=== PATIENT | male | born 1960 | race Caucasian/White ===

== ENCOUNTER 2020-08-10 20:32 | Emergency (ER) | payer OTHER, SELFPAY ==
[2020-08-10 21:15] VITALS: BP 184/92; PULSE 69; RESP 18; TEMP 36.7; O2SAT 96
--- NOTE | 2020-08-10 21:50 | ED.WOUNDLAC ---
HPI - Wound/Laceration General Chief Complaint: Wound/Laceration Stated Complaint: cut finger Source: patient Mode of arrival: ambulatory Limitations: no limitations History of Present Illness HPI narrative: this is a 60-year-old gentleman that presents with a laceration to the left 4rd finger finger pad after he reached under [employer] generator and could on a moses of glass causing a flap-type omer laceration well approximated that was bleeding initially, patient did hold pressure irrigated and 3 of re-evaluation there was no bleeding. There is no numbness or tingling. Onset (ago): hour(s) Extremity Location: Left: hand ( ring finger on the finger pad laceration) Place: home Context: accidental Associated symptoms: none Treatments prior to arrival: other ( held pressure) Related Data Home Medications Medication Instructions Recorded Confirmed albuterol sulfate 2 puff INHALATION Q6H PRN 08/10/20 08/10/20 aspirin [Adult Aspirin] 81 mg PO DAILY 08/10/20 08/10/20 fluticasone propion-salmeterol 1 inh INHALATION BID 08/10/20 08/10/20 [Advair Diskus] telmisartan-hydrochlorothiazid 1 tablet PO DAILY 08/10/20 08/10/20 Allergies Allergy/AdvReac Type Severity Reaction Status Date / Time No Known Allergies Allergy Unknown Verified 10/08/15 16:10 Review of Systems Review of Systems: All systems reviewed & are unremarkable except as noted in HPI and below PMFSH Past Medical History Medical History Asthma HTN (hypertension) Exam Const: General: cooperative and healthy appearing HENMT: Head: normal to inspection Ears: hearing grossly normal bilaterally Face and sinus: normal facial exam Mouth: Yes Normal oral and palatal mucosa present Throat: posterior oropharynx normal Eyes: General: appearance normal, both eyes and all related structures Neck: Neck: normal visual inspection Chest: Chest palpation & inspection: normal inspection of the chest and normal palpation of entire chest wall Resp: Effort & Inspection: normal respiratory effort and able to speak in complete sentences Cardio: Jugular venous distension: no JVD Palpation: normal PMI Rate: regular rate Rhythm: regular rhythm GI: Inspection: normal to inspection Skin: Other: laceration 4th left finger pad well-approximated approximately 2cm in length Course Course Emergency Course: re-evaluation of patient's finger currently no bleeding and Dermabond was placed patient was up-to-date with his tetanus vaccine Procedures Laceration Laceration 1: Date: 08/10/20 Time: 21:55 Site: upper extremity Side (If applicable): left Size (cm): 2 Description: linear and flap Pre-repair: wound explored and irrigated extensively ====== Skin Level ====== Skin layer closed with: dermabond ====== Subcutaneous Layer ====== ====== Muscle Layer ====== ====== Tendon Layer ====== Critical Care Time Critical Care Time Critical Care Time: No Discharge Plan Discharge Clinical Impression: Laceration Patient Disposition: Home, Self-Care Condition: Stable Instructions: Antibiotic Form, Laceration (ED), Skin Adhesive Care (ED) Additional Instructions: follow-up with primary care physician if symptoms persist or worsen. Prescriptions: No Action fluticasone propion-salmeterol [Advair Diskus] 250-50 mcg/dose blister with device 1 inh INHALATION BID RF: 0 telmisartan-hydrochlorothiazid 80-12.5 mg tablet 1 tablet PO DAILY RF: 0 Adult Aspirin 81 mg Tablet 81 mg PO DAILY RF: 0 albuterol sulfate 90 mcg/actuation HFA aerosol inhaler 2 puff INHALATION Q6H PRN (Reason: Shortness Of Breath Or Wheezing) RF: 0 Follow-up/Referrals: Abhishek Liu MD [Primary Care Provider] - Time of Disposition: 21:56
[2020-08-10 22:16] VITALS: BP 162/89; PULSE 72; RESP 16; O2SAT 96
== END 2020-08-10 22:16 | disposition home or self-care (01) ==
PROVIDERS: Emergency Provider Emergency Medicine; PCP Family Medicine
DX: S61.215A Laceration without foreign body of left ring finger without damage to nail, initial encounter (principal); W45.8XXA Other foreign body or object entering through skin, initial encounter
CPT/HCPCS: 12001; 99282

== ENCOUNTER 2021-08-20 07:47 | Outpatient (CLI) | payer OTHER, SELFPAY ==
--- NOTE | ~2021-08-20 | XR_ITS ---
EXAMINATION: XR toe 1st RT min 2V DATE: 08/20/2021 08:07 INDICATION: Right great toe pain and swelling. TECHNIQUE: 4 views of right great toe were obtained. COMPARISON: None. FINDINGS: There is moderate hallux valgus. No fracture. There is moderate osteoarthritis of first met atarsophalangeal joint. No bone erosions to suggest inflammatory arthropathy. IMPRESSION: 1. Moderate ascites. 2. Moderate osteoarthritis of first metatarsophalangeal joint. Reviewed, dictated and finalized at location A. STEWARD
== END 2021-08-20 07:48 | disposition home or self-care (01) ==
LOC: CHSIMG 07:49
PROVIDERS: PCP Family Medicine; Visit Provider Family Medicine
DX: M10.9 Gout, unspecified (principal)
CPT/HCPCS: 73660

== ENCOUNTER 2021-09-29 10:30 | Emergency (ER) | payer OTHER, SELFPAY ==
[2021-09-29] VITALS (7 sets, daily range): BP systolic 114–158; BP diastolic 66–92; PULSE 61–94; RESP 16–22; TEMP 39.1; O2SAT 93–95
--- NOTE | ~2021-09-29 | CT_ITS ---
EXAMINATION: CTA chest PE protocol DATE: 09/29/2021 15:18 INDICATION: Shortness of breath. Elevated d-dimer. Covid-positive patient. TECHNIQUE: Computed tomography angiography (CTA) of the chest was performed with 100 mL Omnipaque-350 intravenous contrast timed to evaluate the pulmonary arteries. Coronal maximum intensity projection 3D-reconstructions were created by the technologist. Automated exposure control and iterative reconst ruction technique were employed. Exam dose: 755.65 mGy-cm total exam DLP. COMPARISON: 09/29/2021 portable AP chest 11/07/2018 CT chest abdomen pelvis FINDINGS: There is diagnostic contrast enhancement of the pulmonary arteries and no evidence of pulmo nary embolism. Normal size and homogeneous density of the thyroid gland. No thoracic aortic aneurysm or dissection. Normal heart size. No pericardial or pleural effusion. No hilar or mediastinal mass lesion or lymphadenopathy. There are scattered bilateral patchy groundglass infiltrates involving all lobes, with peripheral pre dilection. The findings are likely due to Covid pneumonia. There is rather extensive serpiginous calcification surrounding the posterior and posterolateral aspe ct of the hepatic dome and upper posterolateral right hepatic lobe. These were not present on the pre vious examination in 2013. These may be areas of calcified perihepatic fat necrosis, postoperative or posttraumatic change and/or pleural calcifications. There are dependent gallstones. No gallbladder wall thickening or pericholecystic fluid or fat strand ing is noted. Bilateral parapelvic renal cysts are again noted, present on 11/07/2018. No suspicious osteolytic or osteoblastic lesions are noted. IMPRESSION: No evidence of pulmonary embolism Scattered bilateral predominantly peripheral groundglass infiltrates involving all lung lobes, likely due to Covid pneumonia Serpiginous extensive calcification along the posterior lateral and posterior aspect of the liver; di fferential diagnosis given above Cholelithiasis Bilateral parapelvic renal cysts Reviewed, dictated and finalized at [facility]. Reviewed, dictated and finalized at location A. OGRAPHIC PLATEMAKER IMPRESSION: No evidence of pulmonary embolism Scattered bilateral predominantly peripheral groundglass infiltrates involving all lung lobes, likely due to Covid pneumonia Serpiginous extensive calcification along the posterior lateral and posterior a spect of the liver; differential diagnosis given above Cholelithiasis Bilateral parapelvic renal cysts
--- NOTE | ~2021-09-29 | XR_ITS ---
EXAMINATION: XR chest 1V portable DATE: 09/29/2021 11:44 INDICATION: COVID positive. Cough. TECHNIQUE: frontal view of the chest was obtained. COMPARISON: Chest radiograph dated 08/22/1990 FINDINGS: Opacities at the right lung base and more subtly in the right midlung zone and near the left costophr enic angle which could represent atelectasis and/or pneumonia. No pleural effusion or pneumothorax. T he cardiomediastinal silhouette is normal. IMPRESSION: 1. Mild opacities in the right mid and lower and left lower lung zones which could represent atelecta sis and/or pneumonia. Reviewed, dictated and finalized at location H. ATION ONCOLOGY MANAGER IMPRESSION: 1. Mild opacities in the right mid and lower and left lower lung zones which co uld represent atelectasis and/or pneumonia.
--- NOTE | 2021-09-29 11:44 | ECG_ITS ---
Measurements Intervals [place] Rate: 105 P: SC: 0 QRS: -13 QRSD: 85 T: 95 QT: 277 QTc: 366 Interpretive Statements ACCELERATED JUNCTIONAL RHYTHM VENTRICULAR BIGEMINY INCOMPLETE RIGHT BUNDLE BRANCH BLOCK VOLTAGE CRITERIA FOR LVH MINIMAL Q WAVES- HIGH LATERAL LEADS ABNORMAL ECG Electronically Signed On 09-29-2021 16:54:44 LOGISTICS SERVICE REPRESENTATIVE by Richard Harrison D.O.
--- NOTE | 2021-09-29 11:53 | ED.SOB ---
HPI - SOB/Dyspnea General Chief Complaint: Shortness of Breath/Dyspnea Stated Complaint: covid eval Time Seen by Provider: 09/29/21 11:42 Source: patient Mode of arrival: ambulatory Limitations: no limitations History of Present Illness HPI Narrative: Patient is a 61-year-old male complaining of shortness of breath, cough, body aches, fatigue, nausea, fever and chills started 5 days ago, was diagnosed with Covid on 09/25, states that his shortness of breath is worse today. Patient denies any chest pain, abdominal pain, vomiting, diarrhea or rash. Related Data Home Medications Medication Instructions Recorded Confirmed albuterol sulfate 2 puff INHALATION Q6H PRN 08/10/20 12/03/20 aspirin [Adult Aspirin] 81 mg PO DAILY 08/10/20 12/03/20 fluticasone propion-salmeterol 1 inh INHALATION BID 08/10/20 12/03/20 [Advair Diskus] telmisartan-hydrochlorothiazid 1 tablet PO DAILY 08/10/20 12/03/20 fluticasone 250 mcg-salmeterol 50 1 inh INHALATION BID 12/03/20 12/03/20 mcg/dose blistr powdr for inhalation montelukast 10 mg tablet 10 mg PO DAILY 12/03/20 12/03/20 Allergies Allergy/AdvReac Type Severity Reaction Status Date / Time No Known Allergies Allergy Unknown Verified 09/29/21 11:17 Review of Systems Review of Systems: All systems reviewed & are unremarkable except as noted in HPI and below Constitutional: Constitutional: Denies body ache(s), Denies excessive sweating, Denies headache(s), Denies lethargy, Denies weakness and Denies weight loss Eyes: Eyes: Denies blurry vision, Denies change in vision and Denies loss of vision ENT: Denies dizziness, Denies ear discharge, Denies headache(s), Denies lip swelling, Denies epistaxis, Denies neck pain, Denies throat swelling and Denies tongue swelling Cardiovascular: Cardiovascular: Denies chest pain, Denies chest pain at rest, Denies chest pain with activity, Denies diaphoresis, Denies rapid heart rate, Denies edema, Denies irregular heart rhythm, Denies lightheadedness and Denies palpitations Respiratory: Respiratory: Denies chest congestion, Denies cough and Denies hemoptysis Gastrointestinal: Gastrointestinal: Denies abdominal pain, Denies melena, Denies hematochezia, Denies diarrhea, Denies vomiting and Denies hematemesis Musculoskeletal: Musculoskeletal: Denies abnormal gait, Denies deformity, Denies joint swelling, Denies limited range of motion, Denies neck pain and Denies numbness Neurologic: Denies Abnormal speech present, Denies abnormal gait, Denies confusion, Denies dizziness, Denies headache(s), Denies focal weakness, Denies loss of vision, Denies numbness, Denies Other visual disturbances, Denies Sensory deficit (Neuro) and Denies weakness Psychiatric: Psychiatric: Denies confusion, Denies depression, Denies auditory hallucinations, Denies homicidal ideation and Denies suicidal ideation Endocrine: Endocrine: Denies cold intolerance, Denies excessive sweating, Denies fatigue, Denies heat intolerance and Denies palpitations Hematologic/Lymphatic: Hematologic/Lymphatic: Denies easy bleeding and Denies easy bruising Allergic/Immunologic: Allergic/Immunologic: Denies lip swelling, Denies throat swelling and Denies tongue swelling PMFSH Past Medical History Medical History Asthma HTN (hypertension) Surgical History Surgical History Status post bilateral total hip replacement Comments Social history: Non-smoker no EtOH or drug use Exam Const: General: cooperative, healthy appearing, comfortable, no acute distress, well developed, alert and awake; No confusion Orientation/consciousness: oriented to person, oriented to place, oriented to time, patient oriented x3 and No confusion Limitations: no limitations HENMT: Head: normal to inspection, normocephalic and atraumatic Ears: hearing grossly normal bilaterally, TM normal on the right and TM normal
[2021-09-29] MEDS: ACETAMINOPHEN 325 MG TABLET 650 MG PO (12:23)
[2021-09-29 12:24] LABS: Basophils Percent Auto 0.2 % (0.2-1.2); Eosinophils Percent Auto 0.1 % (0-4.4); Hematocrit 48.7 % (42.0-52.0); Hemoglobin 16.5 g/dL (14.0-18.0); Immature Granulocyte Absolute 0.03 K/mm3 (0.00-0.031); Immature Granulocyte Percent A 0.4 % (0-0.5); Lymphocytes Absolute Auto 1.17 K/mm3 (0.9-3.2); Mean Corpuscular HGB Conc 33.9 g/dl (32-36); Mean Corpuscular Hemoglobin 27.9 pg (26-34); Mean Corpuscular Volume 82.4 fl (80-100); Mean Platelet Volume 10.9 fl (7.4-10.4); Monocytes Absolute Auto 0.6 K/mm3 (0.1-0.6); Monocytes Percent Auto 6.8 % (2.6-8.5); Neutrophils Absolute Auto 6.5 K/mm3 (1.3-6.7); Neutrophils Percent Auto 78.5 % (45.5-73.1); Platelet Count Result 167 k/mm3 (150-375); Red Blood Count 5.91 M/mm3 (4.6-6.20); Red Cell Distribution Width 13.4 % (11.5-14.5); White Blood Count 8.3 K/mm3 (4.5-10.0)
[2021-09-29] MEDS: SODIUM CHLORIDE 0.9% IV 1,000 ML 999 ML (12:24)
[2021-09-29 12:36] LABS: Alanine Aminotransferase 44 U/L (4-50); Albumin Level 4.2 g/dL (3.5-5.1); Alkaline Phosphatase 95 U/L (38-126); Anion Gap 8 mmol/L (8-16); Aspartate Amino Transferase 47 U/L (17-59); Bilirubin,Total 0.4 mg/dL (0.2-1.3); Blood Urea Nitrogen 17 mg/dL (9-20); Calcium 8.8 mg/dL (8.4-10.2); Carbon Dioxide 22 mmol/L (22-30); Chloride 100 mmol/L (98-107); Estimated CRCL calculation 58 ml/min; Estimated Glomerular Filt Rate > 60; Glucose 121 mg/dL (65-110); INR 0.9; Partial Thromboplastin Time 27.7 SECONDS (22.3-36.8); Prothrombin Time 12.2 Seconds (11.1-14.7); Sodium 130 mmol/L (137-145)
[2021-09-29 12:37] LABS: Lactic Acid Reflex 1.5 mmol/L (0.7-2.1)
[2021-09-29 12:39] LABS: D Dimer 0.53 ug/mL (<0.48)
[2021-09-29] MEDS: ALBUTEROL SULFATE NEB 2.5 MG/0.5 ML INH 5 MG INHALATION (13:54)
[2021-09-29] MEDS: IPRATROPIUM BR 0.02% INH SOLN 0.5 MG/2.5 ML VIAL INHALATION (13:54)
[2021-09-29] MEDS: LACTATED RINGERS 1,000 ML 999 ML IV CONT (13:57)
[2021-09-29 14:14] LABS: Alveolar/Arterial O2 Gradient 39.9 mmHg; Base Excess ABG -4.1 mEq/l (+/-2.0); Carboxyhemoglobin 0.3 % THb (0-2.0); Fractional Inspired Oxygen 21 %; HCO3 ABG 18.6 mEq/l (22.0-26.0); Methemoglobin ABG 0.3 %THb (0-1.5); Oxygen Content ABG 21.5 %vol (16.0-22.0); Oxygen Saturation ABG 95.6 % (95.0-100.0); Oxyhemoglobin 94.5 % THb (90.0-100.0); PCO2 ABG 28.9 mmHg (35.0-45.0); PO2 ABG 75.2 mmHg (80.0-100.0); PO2 FiO2 Ratio Arterial Blood 3.58 %; Reduced Hemoglobin 4.9 %THb (0-5.0); Total Hemoglobin 16.2 g/dL (12.0-18.0); pH ABG 7.427 (7.350-7.450)
[2021-09-29 14:19] LABS: Device ROOM AIR; Modified Allen's Test Pass; Site Drawn RIGHT RADIAL
== END 2021-09-29 17:20 | disposition home or self-care (01) ==
PROVIDERS: Emergency Provider Emergency Medicine; PCP Family Medicine
DX: U07.1 COVID-19 (principal); J12.82 Pneumonia due to coronavirus disease 2019; J45.901 Unspecified asthma with (acute) exacerbation; I10 Essential (primary) hypertension; Z96.643 Presence of artificial hip joint, bilateral
CPT/HCPCS: 36415; 36600; 71045; 71275; 80053; 82375; 82805; 83050; 83605; 84484; 85025; 85380; 85610; 85730; 93005; 94640; 96361; 96374; 99284; A9270; J1100; J7030; J7120; Q9967

== ENCOUNTER 2021-09-30 12:47 | Outpatient (CLI) | payer OTHER, SELFPAY ==
--- NOTE | 2021-09-30 13:05 | PC.NURSE ---
Pt to room 202 amb. A&Ox3. Infusion plan of care explained. Consent signed. Pt has no questions or complaints. Oriented to room. Call montes in reach. Reminded to call with needs.
[2021-09-30 14:13] VITALS: BP 131/77; PULSE 63; RESP 20; TEMP 36.3; O2SAT 96
[2021-09-30] MEDS: diphenhydrAMINE HCl CAP 25 MG CAPSULE PO (14:13)
[2021-09-30] MEDS: FAMOTIDINE 20 MG TABLET PO (14:13)
[2021-09-30] MEDS: ACETAMINOPHEN 325 MG TABLET 650 MG PO (14:13)
--- NOTE | 2021-09-30 15:22 | PC.NURSE ---
Pt has no complaints. Discharged to home amb.
== END 2021-09-30 12:48 | disposition home or self-care (01) ==
PROVIDERS: PCP Family Medicine; Visit Provider Family Medicine
DX: U07.1 COVID-19 (principal); J44.9 Chronic obstructive pulmonary disease, unspecified
CPT/HCPCS: A9270; M0245; Q0245

== ENCOUNTER 2021-10-04 05:25 | Inpatient (IN) | payer OTHER, SELFPAY ==
[2021-10-04] VITALS (12 sets, daily range): BP systolic 130–149; BP diastolic 65–92; PULSE 56–90; RESP 18–25; TEMP 36.2–36.7; O2SAT 89–100; BMI 29.5
--- NOTE | ~2021-10-04 | XR_ITS ---
EXAMINATION: XR chest 1V portable DATE: 10/04/2021 07:38 INDICATION: Shortness of breath. COVID-19 pneumonia. TECHNIQUE: A single frontal view of the chest was obtained. COMPARISON: Chest single view 09/29/2021, chest CT 09/29/2021 FINDINGS: Again seen is mild elevation of right hemidiaphragm. There are patchy airspace opacities in all lung zones bilaterally, worst at right lung base. No pleural effusion or pneumothorax. The heart size is normal. IMPRESSION: 1. Diffuse lung disease with worsening from 09/29/2021, consistent with COVID-19 pneumonia. Reviewed, dictated and finalized at location A. ISH MAKER IMPRESSION: 1. Diffuse lung disease with worsening from 09/29/2021, consistent with COVID-1 9 pneumonia.
--- NOTE | 2021-10-04 05:47 | ECG_ITS ---
Measurements Intervals [place] Rate: 66 P: 37 PA: 154 QRS: -17 QRSD: 94 T: 14 QT: 386 QTc: 405 Interpretive Statements SINUS RHYTHM VOLTAGE CRITERIA FOR LVH BORDERLINE T WAVE ABNORMALITY- INFERIOR LEADS BASELINE ARTIFACT- I, III, AVR, AVL BORDERLINE ECG Electronically Signed On 10-04-2021 8:32:53 VETERINARY EPIDEMIOLOGIST by Richard Harrison D.O.
[2021-10-04 06:08] LABS: Basophils Percent Auto 0.2 % (0.2-1.2); Eosinophils Percent Auto 0.2 % (0-4.4); Hematocrit 45.1 % (42.0-52.0); Hemoglobin 15.1 g/dL (14.0-18.0); Immature Granulocyte Absolute 0.13 K/mm3 (0.00-0.031); Immature Granulocyte Percent A 1.1 % (0-0.5); Lymphocytes Absolute Auto 2.57 K/mm3 (0.9-3.2); Lymphocytes Percent Auto 21.2 % (18.3-44.2); Mean Corpuscular HGB Conc 33.5 g/dl (32-36); Mean Corpuscular Hemoglobin 27.8 pg (26-34); Mean Corpuscular Volume 82.9 fl (80-100); Mean Platelet Volume 10.9 fl (7.4-10.4); Monocytes Absolute Auto 0.9 K/mm3 (0.1-0.6); Monocytes Percent Auto 7.3 % (2.6-8.5); Neutrophils Absolute Auto 8.5 K/mm3 (1.3-6.7); Platelet Count Result 262 k/mm3 (150-375); Red Blood Count 5.44 M/mm3 (4.6-6.20); Red Cell Distribution Width 13.5 % (11.5-14.5); White Blood Count 12.2 K/mm3 (4.5-10.0)
[2021-10-04 06:22] LABS: Alanine Aminotransferase 76 U/L (4-50); Albumin Level 4.1 g/dL (3.5-5.1); Alkaline Phosphatase 107 U/L (38-126); Anion Gap 11 mmol/L (8-16); Aspartate Amino Transferase 35 U/L (17-59); Bilirubin,Total 0.6 mg/dL (0.2-1.3); Blood Urea Nitrogen 22 mg/dL (9-20); Calcium 9.1 mg/dL (8.4-10.2); Carbon Dioxide 23 mmol/L (22-30); Chloride 103 mmol/L (98-107); Estimated CRCL calculation 84 ml/min; Estimated Glomerular Filt Rate > 60; Glucose 100 mg/dL (65-110); Potassium 4.1 mmol/L (3.4-5.0); Sodium 137 mmol/L (137-145)
--- NOTE | 2021-10-04 07:47 | ED.GENADULT ---
HPI - General Adult General Chief complaint: Shortness of Breath/Dyspnea Stated complaint: hypoxia with COVID Time Seen by Provider: 10/04/21 07:09 Source: RN notes reviewed History of Present Illness HPI narrative: Patient presents emerge department from home for shortness of breath. Patient states he tested positive for COVID-19 on September 25. States that he been seen in the emergency department at that time and had work-up showing he had Covid pneumonia. He states that he became more short of breath last night and came in for further evaluation. Patient states that he has had intermittent subjective fevers he denies any chest pain abdominal pain nausea vomiting. States he did not receive the COVID-19 vaccination Related Data Home Medications Medication Instructions Recorded Confirmed albuterol sulfate 2 puff INHALATION Q6H PRN 08/10/20 12/03/20 aspirin [Adult Aspirin] 81 mg PO DAILY 08/10/20 12/03/20 fluticasone propion-salmeterol 1 inh INHALATION BID 08/10/20 12/03/20 [Advair Diskus] telmisartan-hydrochlorothiazid 1 tablet PO DAILY 08/10/20 12/03/20 fluticasone 250 mcg-salmeterol 50 1 inh INHALATION BID 12/03/20 12/03/20 mcg/dose blistr powdr for inhalation montelukast 10 mg tablet 10 mg PO DAILY 12/03/20 12/03/20 Allergies Allergy/AdvReac Type Severity Reaction Status Date / Time No Known Allergies Allergy Unknown Verified 10/04/21 05:46 Review of Systems Review of Systems: Gen.: Denies fevers or chills ENT: Denies congestion Respiratory: See HPI CV: Denies chest pain or palpitations GI: Denies abdominal pain nausea, emesis or diarrhea Musculoskeletal: Denies back pain or muscle pain Neuro: Denies numbness, tingling, weakness or focal weakness Skin: Denies rash Except as documented, all other systems reviewed and negative PMFSH Past Medical History Medical History Asthma HTN (hypertension) Surgical History Surgical History Status post bilateral total hip replacement Social History Social History (Updated 10/04/21 @ 07:48 by ANA Boss Smoking status: Never smoker Exam Narrative: APPEARANCE: No acute distress, nontoxic, resting in bed EYES: EOMI HEENT: Normocephalic, atraumatic, OMM RESPIRATORY: No respiratory distress coarse breath sounds at the bilateral lung lino CARDIOVASCULAR: Regular rate and rhythm without murmurs rubs or gallops. ABDOMINAL: Soft, nontender, nondistended, no rebound or guarding MUSCULOSKELETAl: Moves all extremities. No clubbing, cyanosis or edema. NEURO: Awake and alert. Following commands, speech normal, no focal deficits SKIN:: Warm, dry. No rashes lesions or abrasions PSYCHIATRIC: Normal affect/mood, Course Course Emergency Course: : Discussed with Dr. Umaña presentation work-up agrees with admission at this time request patient be on Decadron and remdesivir Discussed with patient and family results of workup and diagnosis. Discussed need for admission. Patient and family understand and agree to current treatment plan Vital Signs Vital signs: Vital Signs Pulse Rate 80 10/04/21 05:33 Respiratory Rate 24 H 10/04/21 05:33 Blood Pressure 130/80 10/04/21 05:33 Pulse Oximetry 90 10/04/21 05:33 Pulse Rate 56 L 10/04/21 10:23 Respiratory Rate 18 10/04/21 10:23 Blood Pressure 135/65 10/04/21 10:23 Pulse Oximetry 97 10/04/21 10:23 Medical Decision Making Vital Signs Vital Signs: Vital Signs Pulse Rate 80 10/04/21 05:33 Respiratory Rate 24 H 10/04/21 05:33 Blood Pressure 130/80 10/04/21 05:33 Pulse Oximetry 90 10/04/21 05:33 Pulse Rate 56 L 10/04/21 10:23 Respiratory Rate 18 10/04/21 10:23 Blood Pressure 135/65 10/04/21 10:23 Pulse Oximetry 97 10/04/21 10:23 Lab Data Result diagrams: 10/04/21 06:02 10/04/21 06:02 Labs: Lab Results
[2021-10-04 08:28] LABS: CRP 1.6 mg/dL (<1.0); Lactate Dehydrogenase 815 U/L (313-618)
[2021-10-04] MEDS: ALBUTEROL SULFATE (*SP) AEROSOL 1 PUFF 2 PUFF INHALATION ×2 (08:46→20:57)
[2021-10-04 09:21] LABS: Prothrombin Time 12.6 Seconds (11.1-14.7)
[2021-10-04 09:22] LABS: Partial Thromboplastin Time 21.3 SECONDS (22.3-36.8)
[2021-10-04] MEDS: REMDESIVIR 200 MG/NS 250 ML 200 MG/250 ML BAG 250 MG IVPB (10:23)
--- NOTE | 2021-10-04 12:03 | ADMGEN ---
This patient, Lee Lan, was admitted to [facility] Surg Room 315-01 at 1155. Patient/family oriented to hospital policies and general routines including ID bracelet, bed and alarms, visiting hours, pain management, procedures, bathroom and other care routines, personal items, smoking policy, room service/diet, and visiting hours. Information on how to activate the Rapid Response Team has been discussed. Patient/Family are encouraged to report perceived risks to care and to ask questions if they do not understand what they are told or what they should do.
--- NOTE | 2021-10-04 15:43 | PM.IMHP ---
H&P: HPI History of Present Illness Date/Time: 10/04/21 15:43 Patient is a 61-year-old male with past medical history of moderate persistent asthma, essential hypertension presents to ED with complaints of dyspnea and poor appetite. He is not vaccinated for COVID-19. He was diagnosed with COVID-19 on 09/25/2021 went to the ER on 09/29/2021 with no intervention and sent home. He with returns today stating he had 84% oxygen saturation at room air at home. In the ED he was found to have 89% oxygen saturation on room air, placed on 2 L with improvement of oxygenation to 100%. Patient to be admitted for acute hypoxic respiratory failure secondary to COVID-19. He has been started on remdesivir and Decadron in the ED. we discussed continue supportive care and weaning his oxygen as tolerated. Chief Complaint: Cough Review of Systems Review of Systems: Constitutional: No Fever, No Chills, No Night Sweats, endorses generalized weakness, body aches, fatigue ENT/Mouth: No Hearing Changes, No Ear Pain, No Nasal Congestion, No Sinus Pain, No Hoarseness, No sore throat, No Rhinorrhea, No Swallowing Difficulty Eyes: No Eye Pain, No Redness, No Vision Changes Cardiovascular: No Chest Pain, No Palpitations, No Dyspnea on Exertion, No Orthopnea, No Claudication, No Edema Respiratory: Endorses cough, shortness of breath Gastrointestinal: No Vomiting, No Diarrhea, No Constipation, No Abdominal Pain, No Heartburn, No Hematochezia, No Melena. Endorses nausea and poor appetite. Genitourinary: No Dysuria, No Urinary Frequency, No Hematuria, No Urinary Incontinence, No Urgency Musculoskeletal: No Arthralgias, No Myalgias, No Joint Swelling, No Joint Stiffness, No Back Pain Skin: No Skin Lesions, No Pruritis, No Hair Changes Neuro: No Weakness, No Numbness, No Paresthesias, No Loss of Consciousness, No Syncope, No Dizziness, No Headache Psych: No Anxiety/Panic, No Depression, No Insomnia Heme: No Bruising, No Bleeding Lymph: No Adenopathy Endocrine: No Polyuria, No Polydipsia, No Temperature Intolerance PMFSH Past Medical History Medical History Asthma HTN (hypertension) Surgical History Surgical History Status post bilateral total hip replacement Social History Social History Smoking status: Never smoker Second hand tobacco smoke exposure: No Alcohol intake: never Substance use: never Spiritual care concerns: No Meds Home Medications and Allergies Home Medications Medication Instructions Recorded Confirmed Type albuterol sulfate 2 puff INHALATION Q6H PRN 08/10/20 10/04/21 History aspirin [Adult Aspirin] 81 mg PO DAILY 08/10/20 10/04/21 History fluticasone propion-salmeterol 1 inh INHALATION BID 08/10/20 10/04/21 History [Advair Diskus] telmisartan-hydrochlorothiazid 1 tablet PO DAILY 08/10/20 10/04/21 History fluticasone 250 mcg-salmeterol 50 1 inh INHALATION BID 12/03/20 10/04/21 History mcg/dose blistr powdr for inhalation montelukast 10 mg tablet 10 mg PO DAILY 12/03/20 10/04/21 History methylprednisolone [Medrol (Yovanny)] See Rx Instructions .ROUTE 09/29/21 10/04/21 Rx .COMPLEX #21 each Allergies Allergy/AdvReac Type Severity Reaction Status Date / Time No Known Allergies Allergy Unknown Verified 10/04/21 05:46 Vital Signs Vital Signs - 24 hr 10/04/21 05:33 10/04/21 05:43 10/04/21 05:45 Temperature Pulse Rate 80 69 Respiratory Rate 24 H 24 H Blood Pressure 130/80 149/85 H Pulse Oximetry 90 89 L 93 10/04/21 06:33 10/04/21 08:26 10/04/21 10:23 Temperature Pulse Rate 68 72 56 L Respiratory Rate 19 25 H 18 Blood Pressure 130/70 133/70 135/65 Pulse Oximetry 95 96 97 10/04/21 12:00 10/04/21 12:16 Temperature 36.7 C Pulse Rate 57 L Respiratory Rate 18 Blood Pressure 141/66 H Pulse Oximetry 100 100
[2021-10-04] MEDS: FLUTICASONE/SALMETEROL 115-21 MCG INHALER 1 PUFF 2 PUFF INHALATION (20:57)
[2021-10-05] VITALS (7 sets, daily range): BP systolic 114–145; BP diastolic 66–80; PULSE 56–90; RESP 16–20; TEMP 36.2–36.4; O2SAT 95–99
[2021-10-05] MEDS: ALBUTEROL SULFATE (*SP) AEROSOL 1 PUFF 2 PUFF INHALATION ×2 (02:23→20:56)
[2021-10-05 08:00] LABS: Alanine Aminotransferase 64 U/L (4-50); Albumin Level 3.9 g/dL (3.5-5.1); Alkaline Phosphatase 99 U/L (38-126); Anion Gap 10 mmol/L (8-16); Aspartate Amino Transferase 26 U/L (17-59); Bilirubin,Total 0.5 mg/dL (0.2-1.3); Blood Urea Nitrogen 22 mg/dL (9-20); Calcium 9.1 mg/dL (8.4-10.2); Carbon Dioxide 25 mmol/L (22-30); Chloride 101 mmol/L (98-107); Estimated CRCL calculation 95 ml/min; Estimated Glomerular Filt Rate > 60; Glucose 119 mg/dL (65-110); Potassium 4.7 mmol/L (3.4-5.0); Sodium 136 mmol/L (137-145)
[2021-10-05 08:01] LABS: Basophils Percent Auto 0.3 % (0.2-1.2); Eosinophils Percent Auto 0.1 % (0-4.4); Hematocrit 43.6 % (42.0-52.0); Hemoglobin 14.5 g/dL (14.0-18.0); Immature Granulocyte Absolute 0.16 K/mm3 (0.00-0.031); Immature Granulocyte Percent A 1.1 % (0-0.5); Lymphocytes Absolute Auto 1.94 K/mm3 (0.9-3.2); Lymphocytes Percent Auto 13.7 % (18.3-44.2); Mean Corpuscular HGB Conc 33.3 g/dl (32-36); Mean Corpuscular Volume 84.2 fl (80-100); Mean Platelet Volume 10.8 fl (7.4-10.4); Monocytes Absolute Auto 1.3 K/mm3 (0.1-0.6); Monocytes Percent Auto 9.2 % (2.6-8.5); Neutrophils Absolute Auto 10.7 K/mm3 (1.3-6.7); Neutrophils Percent Auto 75.6 % (45.5-73.1); Platelet Count Result 305 k/mm3 (150-375); Red Blood Count 5.18 M/mm3 (4.6-6.20); Red Cell Distribution Width 13.3 % (11.5-14.5); White Blood Count 14.2 K/mm3 (4.5-10.0)
[2021-10-05 08:50] LABS: Prothrombin Time 12.9 Seconds (11.1-14.7)
[2021-10-05] MEDS: ENOXAPARIN 40 MG/0.4 ML SYRINGE SUB-Q (08:51)
[2021-10-05] MEDS: ASPIRIN 81 MG CHEWABLE TABLET PO (08:51)
[2021-10-05] MEDS: MONTELUKAST SODIUM 10 MG TABLET PO (08:52)
[2021-10-05] MEDS: TELMISARTAN 40 MG TABLET 80 MG PO (08:52)
[2021-10-05] MEDS: methylPREDNISolone SOD SUCC 40 MG VIAL IV PUSH (09:35)
[2021-10-05] MEDS: REMDESIVIR 100 MG/NS 250 ML 100 MG/250 ML BAG 250 MG IVPB (10:45)
[2021-10-05] MEDS: hydroCHLOROthiazide 12.5 MG CAPSULE PO (10:46)
[2021-10-05 11:19] LABS: Atypical Lymphocytes Present; Platelet Estimate Adequate (Adequate)
--- NOTE | 2021-10-05 14:53 | PM.IMPN ---
Progress Note: A&P Assessment and Plan (1) Pneumonia due to COVID-19 virus: Code(s): U07.1 - COVID-19; J12.82 - Pneumonia due to coronavirus disease 2019 Status: Acute (2) Acute respiratory failure with hypoxia: Code(s): J96.01 - Acute respiratory failure with hypoxia Status: Acute Additional Plan # COVID-19 pneumonia # acute hypoxic respiratory failure -unvaccinated, diagnosed 09/25/2021, seen in the ER 09/29/2021, now returns to hospital -patient states he was 84% home pulse oximeter, in the ER 89% on room air, placed on 2 L now satting 99% -will keep oxygen saturation greater than 90%, currently on 2 L oxygen nasal cannula -treatment plan: Remdesivir day 2, switching Decadron to Solu-Medrol IV 40 mg daily -p.r.n. Tylenol for fever and pain -discussed with RN to continue weaning oxygen # chronic conditions -essential hypertension: Continue hydrochlorothiazide and telmisartan, aspirin -asthma: Continue home Advair, p.r.n. albuterol, singular. Diet: Regular DVT prophylaxis: Lovenox Code status: Full code like Disposition: Pending clinical course, weaning oxygen, likely home in 2-3 days Subjective Date/time seen: 10/05/21 14:53 Patient seen examined. Doing well today no new complaints. On 2 L oxygen by nasal cannula. Discussed with RN to continue weaning. He is tolerating remdesivir without problem, switching Decadron to Solu-Medrol for bradycardia. Patient denies fever, chills, nausea, vomiting, diarrhea. He endorses cough and dyspnea. Review of Systems Review of Systems: All systems reviewed & are unremarkable except as noted in HPI and below Exam Narrative: - GENERAL: Pleasant male in no acute distress. Well-nourished. - EYES: EOMI. Anicteric. - HENT: Moist mucous membranes. - LUNGS: Coarse lung sounds bilaterally, no wheezing or rales. Significant persistent cough. Nonlabored respirations on 2 L oxygen. - CARDIOVASCULAR: Regular rate and rhythm. No murmur. No JVD. - ABDOMEN: Soft, non-tender and non-distended. No palpable masses. - EXTREMITIES: No edema. Peripheral pulses 2+. Non-tender. - NEUROLOGIC: No focal neurological deficits. CN II-XII grossly intact. - PSYCHIATRIC: Awake, Alert and oriented x 3. Appropriate mood and affect. - SKIN: No rashes or lesions. Warm. - LYMPH: No cervical lymphadenopathy. Objective Data Vital Signs Vital Signs: Vital Signs - 24 hr 10/04/21 20:40 10/04/21 20:58 10/04/21 21:42 Temperature 36.7 C Pulse Rate 65 90 65 Respiratory Rate 18 20 18 Blood Pressure 145/87 H Pulse Oximetry 96 96 10/05/21 02:30 10/05/21 05:36 10/05/21 08:00 Temperature 36.4 C 36.3 C L Pulse Rate 90 56 L 60 Respiratory Rate 20 16 20 Blood Pressure 142/78 H 145/80 H Pulse Oximetry 95 99 10/05/21 12:00 Temperature 36.2 C L Pulse Rate 56 L Respiratory Rate 20 Blood Pressure 115/66 Pulse Oximetry 97 Intake/Output Intake/Output: Intake & Output 10/02/21 10/03/21 10/04/21 10/05/21 23:59 23:59 23:59 23:59 Intake Total 1230 990 Balance 1230 990 Meds/Results Medications: Active Medications Generic Name Dose Route Start Last Admin Trade Name Freq PRN Reason Stop Dose Admin Acetaminophen 650 mg 10/04/21 15:41 Acetaminophen 325 Mg Tablet PO Q4H PRN Mild Pain (1-3) or Fever Albuterol 2 puff 10/04/21 14:00 10/05/21 02:23 Albuterol Sulfate (*Sp) Aerosol 1 Puff INHALATION 2 puff Q6HRT MARINA Administration Albuterol 2 puff 10/04/21 15:41 Albuterol Sulfate (*Sp) Aerosol 1 Puff INHALATION Q6H PRN Shortness Of Breath Or Wheezing Aspirin 81 mg 10/05/21 09:00 10/05/21 08:51 Aspirin 81 Mg Chewable Tablet PO 81 mg DAILY MARINA Administration Bisacodyl 5 mg 10/04/21 15:41 Bisacodyl 5 Mg Tablet Ec PO DAILY PRN Constipation Enoxaparin Sodium 40 mg 10/05/21 09:00 10/05/21 08:51 Enoxaparin 40 Mg/0.4 Ml Syringe SUB-Q 40 mg DAILY MARINA Administration Hydrochlorothiazide 12.5
[2021-10-05] MEDS: FLUTICASONE/SALMETEROL 115-21 MCG (*SP) INHALER 2 PUFF INHALATION (20:57)
[2021-10-06] MEDS: ALBUTEROL SULFATE (*SP) AEROSOL 1 PUFF 2 PUFF INHALATION ×3 (02:29→13:47)
[2021-10-06 05:33] VITALS: BP 121/67; PULSE 46; RESP 16; TEMP 36.1; O2SAT 97
[2021-10-06 07:29] VITALS: PULSE 46; RESP 16; O2SAT 97
[2021-10-06] MEDS: FLUTICASONE/SALMETEROL 115-21 MCG (*SP) INHALER 2 PUFF INHALATION (08:10)
[2021-10-06 08:15] VITALS: O2SAT 92
[2021-10-06] MEDS: MONTELUKAST SODIUM 10 MG TABLET PO (08:41)
[2021-10-06] MEDS: methylPREDNISolone SOD SUCC 40 MG VIAL IV PUSH (08:41)
[2021-10-06] MEDS: ENOXAPARIN 40 MG/0.4 ML SYRINGE SUB-Q (08:41)
[2021-10-06] MEDS: TELMISARTAN 40 MG TABLET 80 MG PO (08:41)
[2021-10-06] MEDS: ASPIRIN 81 MG CHEWABLE TABLET PO (08:41)
[2021-10-06] MEDS: hydroCHLOROthiazide 12.5 MG CAPSULE PO (08:41)
[2021-10-06 09:52] LABS: Hematocrit 44.3 % (42.0-52.0); Hemoglobin 14.6 g/dL (14.0-18.0); Mean Corpuscular Hemoglobin 27.1 pg (26-34); Mean Corpuscular Volume 82.3 fl (80-100); Mean Platelet Volume 10.7 fl (7.4-10.4); Platelet Count Result 364 k/mm3 (150-375); Red Blood Count 5.38 M/mm3 (4.6-6.20); Red Cell Distribution Width 13.2 % (11.5-14.5); White Blood Count 15.8 K/mm3 (4.5-10.0)
[2021-10-06 10:05] LABS: Prothrombin Time 13.4 Seconds (11.1-14.7)
[2021-10-06 10:16] LABS: Alanine Aminotransferase 48 U/L (4-50); Albumin Level 3.4 g/dL (3.5-5.1); Alkaline Phosphatase 99 U/L (38-126); Anion Gap 12 mmol/L (8-16); Aspartate Amino Transferase 22 U/L (17-59); Bilirubin,Total 0.5 mg/dL (0.2-1.3); Blood Urea Nitrogen 27 mg/dL (9-20); Calcium 9.3 mg/dL (8.4-10.2); Carbon Dioxide 23 mmol/L (22-30); Chloride 98 mmol/L (98-107); Estimated CRCL calculation 69 ml/min; Estimated Glomerular Filt Rate > 60; Glucose 182 mg/dL (65-110); Potassium 4.5 mmol/L (3.4-5.0); Sodium 133 mmol/L (137-145)
[2021-10-06] MEDS: REMDESIVIR 100 MG/NS 250 ML 100 MG/250 ML BAG 250 MG IVPB (10:45)
--- NOTE | 2021-10-06 13:22 | PM.DS ---
DS: Admitting Diagnosis Discharge Date 10/06/2021 Admitting Diagnosis COVID-19 pneumonia, acute hypoxic respiratory failure DS: Discharge Diagnosis Discharge Diagnosis (1) Acute respiratory failure with hypoxia: Code(s): J96.01 - Acute respiratory failure with hypoxia Status: Acute (2) Pneumonia due to COVID-19 virus: Code(s): U07.1 - COVID-19; J12.82 - Pneumonia due to coronavirus disease 2019 Status: Acute DS: Summary Hospital Course Reason for hospitalization: Acute hypoxic respiratory failure from COVID 19 pneumonia Hospital Course: Patient is a 61-year-old male with past medical history of moderate persistent asthma, essential hypertension presents to ED with complaints of dyspnea and poor appetite. He is not vaccinated for COVID-19. He was diagnosed with COVID-19 on 09/25/2021 went to the ER on 09/29/2021 with no intervention and sent home. He with returned 10/04/2020 with 84% oxygen saturation at room air at home. In the ED he was found to have 89% oxygen saturation on room air, placed on 2 L with improvement of oxygenation to 100%. Patient to be admitted for acute hypoxic respiratory failure secondary to COVID-19. He has been started on remdesivir and Decadron for 2 days then weaned to room air. Decadron switched to solu-medrol for bradycardia. He has some wheezing likely from his asthma and I will discharge him home with Medrol Dosepak. He has been advised to check his pulse ox at home with a home machine and if he drops into the 80s despite rest to come back to the hospital. He will follow-up with PCP in 2 week. Patient advised to quarantine for 2 weeks from diagnosis date. Patient understands and agrees with plan. Patient's vitals are stable, labs stable, patient is stable for discharge home. Status at Discharge Cognitive/behavioral status at discharge: At baseline Functional status at discharge: independent ambulation Overall status at discharge: patient is back to baseline Time Spent with Patient Time attestation: Total time spent providing and/or coordinating discharge services:35 Time spent: Greater than 30 minutes Exam Narrative: - GENERAL: Pleasant male in no acute distress. Well-nourished. - EYES: EOMI. Anicteric. - HENT: Moist mucous membranes. - LUNGS: Coarse lung sounds bilaterally, no wheezing or rales. One Nonlabored respirations on room air - CARDIOVASCULAR: Regular rate and rhythm. No murmur. No JVD. - ABDOMEN: Soft, non-tender and non-distended. No palpable masses. - EXTREMITIES: No edema. Peripheral pulses 2+. Non-tender. - NEUROLOGIC: No focal neurological deficits. CN II-XII grossly intact. - PSYCHIATRIC: Awake, Alert and oriented x 3. Appropriate mood and affect. - SKIN: No rashes or lesions. Warm. - LYMPH: No cervical lymphadenopathy. DS: Data Data Completed and Pending Labs on day of discharge: Labs from last 24 hours 10/06/21 10/06/21 10/06/21 09:12 09:12 09:12 WBC 15.8 H RBC 5.38 Hgb 14.6 Hct 44.3 MCV 82.3 MCH 27.1 MCHC 33.0 RDW 13.2 Plt Count 364 MPV 10.7 H PT 13.4 INR 1.0 Sodium 133 L Potassium 4.5 Chloride 98 Carbon Dioxide 23 Anion Gap 12 BUN 27 H Creatinine 1.00 Estim Creat Clear Calc 69 Estimated GFR > 60 Glucose 182 H Calcium 9.3 Total Bilirubin 0.5 AST 22 ALT 48 Alkaline Phosphatase 99 Total Protein 6.0 L Albumin 3.4 L Discharge Plan Discharge Attending physician on discharge: Raffi Umaña Discharging Clinician: Raffi Umaña Anticipated Discharge Date/Time: 10/06/21 12:46 Patient Disposition: Home, Self-Care Activity: no shower Diet: regular Discharge Instructions: Please use medrol dose sailaja for your asthma and COVID. If you get short of breath, please use pulse oximeter at home and measure your oxygen level at rest. If you drop into the 80s despite resting, then come back to hospital. Otherwise use tylenol
[2021-10-06 13:56] VITALS: BP 149/74; PULSE 79; RESP 18; TEMP 35.8; O2SAT 93
== END 2021-10-06 14:55 | disposition home or self-care (01) | DRG 177 ==
LOC: ANHED 07:09 → ANH3MEDSUR 10:48
PROVIDERS: Emergency Medicine; Admitting Provider Student in an Organized Health Care Education/Training Program; Emergency Provider Emergency Medicine; PCP Family Medicine; Visit Provider Student in an Organized Health Care Education/Training Program
DX: U07.1 COVID-19 (principal); J12.82 Pneumonia due to coronavirus disease 2019; J96.01 Acute respiratory failure with hypoxia; I10 Essential (primary) hypertension; J45.40 Moderate persistent asthma, uncomplicated; Z96.643 Presence of artificial hip joint, bilateral
CPT/HCPCS: 36415; 71045; 80053; 83615; 83735; 85025; 85027; 85610; 85730; 86140; 93005; 94640; 96374; 99291; A9270; G0378; J1100; J1650; J2920

== ENCOUNTER 2022-01-09 16:51 | Outpatient (CLI) | payer OTHER, SELFPAY ==
--- NOTE | ~2022-01-09 | XR_ITS ---
XR shoulder RT min 2V DATE: 01/09/2022 17:11 INDICATION: Posterior right shoulder pain, limited movement for one year. No known injury. TECHNIQUE: 4 views COMPARISON: None FINDINGS: There is joint space narrowing and spurring at the, clavicular joint. There is joint space narrowing and prominent spurring at the right glenohumeral joint. No fracture or dislocation, periosteal reaction or bone destruction or abnormal soft tissue calcifica tion of the right shoulder is detected. IMPRESSION: Severe right glenohumeral osteoarthritis Degenerative change at the right acromioclavicular joint Reviewed, dictated and finalized at location A.
== END 2022-01-09 16:52 | disposition home or self-care (01) ==
LOC: CHSLAB 16:52
PROVIDERS: PCP Family Medicine; Visit Provider Family Medicine
DX: M25.511 Pain in right shoulder (principal)
CPT/HCPCS: 73030

== ENCOUNTER 2022-03-10 09:28 | Outpatient (CLI) | payer OTHER, SELFPAY ==
--- NOTE | ~2022-03-10 | XR_ITS ---
EXAMINATION: XR lg joint inject/asp w image DATE: 03/10/2022 10:34 INDICATION: Severe right shoulder osteoarthritis. TECHNIQUE: A time-out was performed to verify the patient's name, date of , and procedure to b e performed. The procedure including the risks, benefits, and alternatives was discussed with the pat ient. Risks discussed included bleeding and infection. The patient understood the risks and agreed to proceed. The skin overlying the right glenohumeral joint was prepped and draped in usual sterile fa shion. Anesthetic was administered with 1% lidocaine subcutaneously. A 22 G needle was advanced und er fluoroscopic guidance into the joint. Subsequently, injectate consisting of 4 mL 1% lidocaine and 1 mL 80 mg/mL Depo-Medrol was instilled. The needle was removed and the entry site was cleaned and d ressed. There were no immediate complications. Fluoroscopy exposure time was 0.1 minutes. The total number of images was 1. FINDINGS: Real-time fluoroscopy demonstrates the needle in the right glenohumeral joint. Patient's pa in prior to procedure:04/12. Patient's pain following the procedure: 01/11. IMPRESSION: 1. Fluoroscopy guided right glenohumeral joint injection of local anesthetic and steroid with decreas e in the patient's presenting pain. Reviewed, dictated and finalized at location A. IMPRESSION: 1. Fluoroscopy guided right glenohumeral joint injection of local anesthetic an d steroid with decrease in the patient's presenting pain.
== END 2022-03-10 09:29 | disposition home or self-care (01) ==
PROVIDERS: PCP Family Medicine; Visit Provider Orthopaedic Surgery
DX: M19.011 Primary osteoarthritis, right shoulder (principal)
CPT/HCPCS: 20610; 77002; J1040; Q9966

== ENCOUNTER 2022-05-04 10:34 | Outpatient (CLI) | payer OTHER, SELFPAY ==
[2022-05-04 11:41] LABS: SARS-CoV-2 RNA PCR Positive (Negative)
== END 2022-05-04 10:35 | disposition home or self-care (01) ==
PROVIDERS: PCP Family Medicine; Visit Provider Family Medicine
DX: U07.1 COVID-19 (principal); J00 Acute nasopharyngitis [common cold]
CPT/HCPCS: C9803; U0003; U0005

== ENCOUNTER 2022-06-17 08:40 | Outpatient (CLI) | payer OTHER, SELFPAY ==
--- NOTE | ~2022-06-17 | XR_ITS ---
EXAMINATION: XR lg joint inject/asp w image DATE: 06/17/2022 09:32 INDICATION: Primary osteoarthritis of the right shoulder with right shoulder pain TECHNIQUE: A time-out was performed to verify the patient's name, date of , and procedure to b e performed. The procedure including the risks, benefits, and alternatives was discussed with the pat ient. Risks discussed included bleeding and infection. The patient understood the risks and agreed to proceed. The skin overlying the rotator cuff interval of the right glenohumeral joint was prepped a nd draped in usual sterile fashion. Anesthetic was administered with 1% lidocaine subcutaneously. A 22 G needle was advanced under fluoroscopic guidance into the joint. Injection of 1 mL of Omnipaque 240 confirmed intra-articular position of the needle. Subsequently, injectate consisting of 5 mm of a 4:1 mixture of 1% lidocaine: 80 mg/mL Depo-Medrol for a total dosage of 80 mg Depo-Medrol was inst illed. Washout of contrast was seen confirming intra-articular administration. The needle was removed and the entry site was cleaned and dressed. There were no immediate complications. Fluoroscopy expo sure time was 0.1 minutes. The total number of images was 4. FINDINGS: Real-time fluoroscopy demonstrates the needle and contrast in the right glenohumeral joint. Patient's pain prior to procedure:04/12. Patient's pain following the procedure: 11/13. IMPRESSION: 1. Successful right glenohumeral joint injection of local anesthetic and steroid with decrease in the patient's presenting pain. Reviewed, dictated and finalized at location A. IMPRESSION: 1. Successful right glenohumeral joint injection of local anesthetic and steroi d with decrease in the patient's presenting pain.
== END 2022-06-17 08:41 | disposition home or self-care (01) ==
PROVIDERS: PCP Family Medicine; Visit Provider Orthopaedic Surgery
DX: M19.011 Primary osteoarthritis, right shoulder (principal)
CPT/HCPCS: 20610; 77002; J1040; Q9966

== ENCOUNTER 2022-09-25 12:51 | Outpatient (CLI) | payer OTHER, SELFPAY ==
--- NOTE | 2022-09-25 01:00 | ECHO_ITS ---
Patient Info Name: Lee Lan Age: 62 years : 1960 Gender: Male Ht: 68 in Wt: 210 lbs BSA: 2.17 m2 HR: 50 bpm BP: 140 / 74 mmHg Heart Rhythm: Sinus Rhythm Technical Quality: Fair Exam Date: 09/25/2022 1:45 PM Exam Location: [facility] Patient Status: Outpatient Admit Date: 09/25/2022 Staff Ordering Physician: Abhishek Liu MD Large Animal Veterinarian: Silvina Ybarra RDCS Attending Provider: Abhishek Liu MD Referring Physician: Noe LOZADA; Exam Type: CA echo doppler color flow Study Info Indications - heart failure Complete two-dimensional, color flow and Doppler transthoracic echocardiogram is performed. Summary 1. Complete two-dimensional, color flow and Doppler transthoracic echocardiogram is performed. 2. Left ventricular chamber dimension is normal. 3. Left ventricular systolic function is normal, estimated at 55-60%. 4. The left ventricular diastolic function is normal. 5. E/e' 7 is not elevated. 6. There is mild aortic valve sclerosis. 7. There is mild aortic valve regurgitation. 8. There is trace mitral valve regurgitation. 9. There is trace tricuspid valve regurgitation. 10. No pulmonary hypertension, estimated pulmonary arterial systolic pressure is 33 mmHg. Left Ventricle E/e' 7 is not elevated. Left ventricular chamber dimension is normal. Left ventricular systolic function is normal, estimated at 55-60%. The left ventricular diastolic function is normal. Right Ventricle Right ventricular systolic function is normal and with normal TAPSE 1.8 cm. Right ventricular chamber dimension is normal. Left Atria Left atrial chamber dimension is normal. Right Atria Right atrial chamber dimension is normal. Aortic Valve The aortic valve is trileaflet. There is mild aortic valve sclerosis. There is no aortic valve stenosis. There is mild aortic valve regurgitation. Pulmonic Valve There is no pulmonic regurgitation. Mitral Valve There is no mitral valve stenosis. There is trace mitral valve regurgitation. Tricuspid Valve There is trace tricuspid valve regurgitation. No pulmonary hypertension, estimated pulmonary arterial systolic pressure is 33 mmHg. Pericardium/Pleural There is no pericardial effusion. Inferior Vena Cava Normal inferior vena cava with >50% collapse upon inspiration consistent with normal right atrial pressure, 5 mmHg. Aorta The aortic root size at the sinus of Valsalva is normal. Left Ventricular Outflow Tract Name Value Normal LVOT 2D LVOT Diameter 2.1 cm LVOT Doppler LVOT Peak Velocity 92 cm/s LVOT Peak Gradient 3 mmHg LVOT Mean Gradient 2 mmHg LVOT VTI 19 cm LVOT VTI/AV VTI Ratio 0.5 LVOT Stroke Volume 62 ml Pulmonic Valve Name Value Normal KORY Veloz
== END 2022-09-25 12:52 | disposition home or self-care (01) ==
LOC: CHSIMG 12:52
PROVIDERS: PCP Family Medicine; Visit Provider Family Medicine
DX: I50.9 Heart failure, unspecified (principal); I08.3 Combined rheumatic disorders of mitral, aortic and tricuspid valves
CPT/HCPCS: 93306

== ENCOUNTER 2022-11-18 12:51 | Outpatient (CLI) | payer OTHER, SELFPAY ==
--- NOTE | ~2022-11-18 | XR_ITS ---
EXAMINATION: XR lg joint inject/asp w image DATE: 11/18/2022 13:48 INDICATION: Right glenohumeral joint osteoarthritis. TECHNIQUE: A time-out was performed to verify the patient's name, date of , and procedure to b e performed. The procedure including the risks, benefits, and alternatives was discussed with the pat ient. Risks discussed included bleeding and infection. The patient understood the risks and agreed to proceed. The skin overlying the right glenohumeral joint was prepped and draped in usual sterile fa shion. Anesthetic was administered with 1% lidocaine subcutaneously. A 22 G needle was advanced und er fluoroscopic guidance into the joint. Subsequently, injectate consisting of 4 mL 1% lidocaine and 1 mL 80 mg/mL Depo-Medrol was instilled. The needle was removed and the entry site was cleaned and d ressed. There were no immediate complications. Fluoroscopy exposure time was 0.1 minutes. The total number of images was 1. FINDINGS: Real-time fluoroscopy demonstrates the needle in the right glenohumeral joint. Patient's pa in prior to procedure:05/13. Patient's pain following the procedure: 11/13. IMPRESSION: 1. Fluoroscopy guided right glenohumeral joint injection of local anesthetic and steroid with decreas e in the patient's presenting pain. Reviewed, dictated and finalized at location A. YST IMPRESSION: 1. Fluoroscopy guided right glenohumeral joint injection of local anesthetic an d steroid with decrease in the patient's presenting pain.
== END 2022-11-18 12:52 | disposition home or self-care (01) ==
LOC: ANHIMG 12:53
PROVIDERS: PCP Family Medicine; Visit Provider Orthopaedic Surgery
DX: M19.011 Primary osteoarthritis, right shoulder (principal)
CPT/HCPCS: 20610; 77002; J1040

== ENCOUNTER 2023-02-05 15:07 | Emergency (ER) | payer OTHER, SELFPAY ==
[2023-02-05 15:07] VITALS: BP 130/80; PULSE 80; RESP 16; TEMP 36.8; O2SAT 96
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
[2023-02-05] MEDS: TETANUS,DIPHTHERIA,AC PERTUSSIS ADULT (0.5 ML) BOOSTRIX IM (16:53)
== END 2023-02-05 16:55 | disposition home or self-care (01) ==
PROVIDERS: Emergency Provider Emergency Medicine; PCP Family Medicine
DX: S50.312A Abrasion of left elbow, initial encounter (principal); S80.02XA Contusion of left knee, initial encounter; Z23 Encounter for immunization; J45.909 Unspecified asthma, uncomplicated; I10 Essential (primary) hypertension; Z79.82 Long term (current) use of aspirin; Z96.643 Presence of artificial hip joint, bilateral; V44.5XXA Car driver injured in collision with heavy transport vehicle or bus in traffic accident, initial encounter
CPT/HCPCS: 90471; 90715; 99283

== ENCOUNTER 2024-02-15 08:55 | Outpatient (CLI) | payer OTHER, SELFPAY ==
--- NOTE | ~2024-02-15 | XR_ITS ---
EXAMINATION: XR wrist LT min 3V DATE: 02/15/2024 09:37 INDICATION: Left wrist pain. TECHNIQUE: 4 views of left wrist were obtained. COMPARISON: Left hand radiographs 06/06/2017 FINDINGS: Ulna touches lunate with bone remodeling, consistent with ulnolunate impaction syndrome. Th ere is severe osteoarthritis of distal radioulnar joint and mild osteoarthritis of first carpometacar pal joint. There is moderate osteoarthritis of first and second metacarpophalangeal joints and mild o steoarthritis of the third metacarpophalangeal joint. IMPRESSION: 1. Polyarticular osteoarthritis. Reviewed, dictated and finalized at location A.
--- NOTE | ~2024-02-15 | XR_ITS ---
EXAMINATION: XR knee LT 3V DATE: 02/15/2024 09:37 INDICATION: Left knee pain. TECHNIQUE: 4 views of left knee were obtained. COMPARISON: None. FINDINGS: Bone alignment is normal. No fracture. There is mild osteoarthritis of medial and patellofe moral compartments. There is a small knee joint effusion. There is prepatellar and superficial infrap atellar soft tissue swelling. IMPRESSION: 1. Mild left knee osteoarthritis. 2. Small left knee joint effusion. Reviewed, dictated and finalized at location A.
== END 2024-02-15 08:56 | disposition home or self-care (01) ==
LOC: CHSIMG 08:58
PROVIDERS: PCP Family Medicine; Visit Provider Family Medicine
DX: M25.562 Pain in left knee (principal); M25.532 Pain in left wrist; M19.032 Primary osteoarthritis, left wrist; M17.12 Unilateral primary osteoarthritis, left knee; M25.462 Effusion, left knee
CPT/HCPCS: 73110; 73562

== ENCOUNTER 2024-05-24 16:11 | Outpatient (CLI) | payer OTHER, SELFPAY ==
--- NOTE | ~2024-05-24 | XR_ITS ---
EXAMINATION: XR hand RT min 3V DATE: 05/24/2024 16:42 INDICATION: Right hand pain. TECHNIQUE: 3 views of right hand were obtained. COMPARISON: None. FINDINGS: There is 3 mm positive ulnar variance. There is degenerative cystic change in proximal shaista te and distal ulnar, consistent with ulnolunate impaction syndrome. No fracture. There is severe oste oarthritis of second and third metacarpophalangeal joints and mild osteoarthritis of some of the inte rphalangeal joints. There is moderate osteoarthritis of second and third distal interphalangeal joint s. IMPRESSION: 1. Polyarticular osteoarthritis. Reviewed, dictated and finalized at location A.
== END 2024-05-24 16:12 | disposition home or self-care (01) ==
PROVIDERS: PCP Family Medicine; Visit Provider Family Medicine
DX: M79.641 Pain in right hand (principal); M19.041 Primary osteoarthritis, right hand
CPT/HCPCS: 73130

== ENCOUNTER 2024-06-08 10:13 | Outpatient (CLI) | payer OTHER, SELFPAY ==
[2024-06-08 10:43] LABS: SARS-CoV-2 Ag Positive (Negative)
[2024-06-08 10:44] LABS: Influenza Control Valid (Valid)
== END 2024-06-08 10:14 | disposition home or self-care (01) ==
LOC: CHSLAB 10:14
PROVIDERS: PCP Family Medicine; Visit Provider Family Medicine
DX: U07.1 COVID-19 (principal); J06.9 Acute upper respiratory infection, unspecified
CPT/HCPCS: 87426; 87804

== ENCOUNTER 2024-09-11 16:49 | Outpatient (CLI) | payer OTHER, SELFPAY ==
--- NOTE | ~2024-09-11 | XR_ITS ---
Clinical Indication: Asthma PA and lateral views of the chest: Comparison: 10/04/2021 Findings: The lungs are clear, without evidence of focal consolidation or pleural effusion. Focal joya ntration right hemidiaphragm noted. Cardiomediastinal silhouette is within normal limits. Bones and s oft tissues are unremarkable. Impression: Clear lungs. Reviewed, dictated and finalized at location M. TRANSMISSION MECH[employer]IC Impression: Clear lungs.
== END 2024-09-11 16:50 | disposition home or self-care (01) ==
LOC: CHSIMG 16:52
PROVIDERS: PCP Family Medicine; Visit Provider Family Medicine
DX: J45.41 Moderate persistent asthma with (acute) exacerbation (principal)
CPT/HCPCS: 71046

== ENCOUNTER 2024-11-28 09:03 | Outpatient (CLI) | payer OTHER, SELFPAY ==
--- OUTSIDE RECORDS SUMMARY | 2024-11-28 09:44 | XMS_ITS | Clinical Summary ---
Author Organization [facility] Address [facility] [place] [address] Care Team Providers Care Loan Services Professional Name Role Phone Abhishek Liu MD Primary Care Provider [phone] Allergies No known active allergies Medications fluticasone-salm eterol (ADVAIR DISKUS) 100-50 MCG/ACT inhaler Inhale 1 puff into the lungs 2 (two) times daily. Active albuterol sulfate HFA 108 (90 Base) MCG/ACT inhaler Inhale 2 puffs into the lungs every 6 (six) hours as needed for Wheezing. Active aspirin 81 MG chewable tablet Chew 1 tablet (81 mg total) by mouth daily. Active allopurinol (ZYLOPRIM) 100 MG tablet Take 1 tablet (100 mg total) by mouth daily. Active Social History Tobacco Use Types Packs/Day Years Used Date Smoking Tobacco: Never Smokeless Tobacco: Never Tobacco Cessation:Counseling Given: Not Answered Alcohol Use Standard Drinks/Week Comments Not Currently 0 (1 standard drink = 0.6 oz pur e alcohol) Sex and Gender Information Value Date Recorded Sex Assigned at Male 09/09/2023 9:16 PM POLYTECHNIC REGISTRAR Legal Sex Male 8:09 PM CDT Gender Identity Male 09/09/2023 9:16 PM POLYTECHNIC REGISTRAR Sexual Orientation Straight 09/09/2023 9: 16 PM POLYTECHNIC REGISTRAR Last Filed Vital Signs Vital Sign Reading Time Taken Comments Blood Pressure 163/90 09/09/2023 9:10 PM POLYTECHNIC REGISTRAR Pulse 49 09/09/2023 9:10 PM POLYTECHNIC REGISTRAR Temperature 36.7 C (98 F) 09/09/2023 9:10 PM POLYTECHNIC REGISTRAR Respiratory Rate 18 09/09/2023 9:10 PM POLYTECHNIC REGISTRAR Oxygen Saturation 93% 09/09/2023 9:10 PM POLYTECHNIC REGISTRAR Inhaled Oxygen Concentration - - Weight 98.9 kg (218 lb) 09/09/2023 9:10 PM POLYTECHNIC REGISTRAR Height 175.3 cm (5' 9 ) 09/09/2023 9:10 PM POLYTECHNIC REGISTRAR Body Mass Index 32.19 09/09/2023 9:10 PM POLYTECHNIC REGISTRAR Plan of Treatment Health Maintenance Due Date Last Done Comments Colorectal Cancer Screening Colonoscopy (10 Years) 1960 Annual Physical 01/04/1963 Hepatitis C 01/04/1978 Zoster Vaccines (1 of 2) 01/04/2010 COVID-19 Vaccine (2023-2 5 season) 2024 Influenza Adult (#1) 2024 07/14/2019, 10/23/2015, 10/04/2015 DTaP, Tdap and Td Vaccines ( 3 - Td or Tdap) 02/05/2033 02/05/2023, 05/28/2016 RSV Immunization or 60+ Years (1 - 1-dose 75+ series) 01/04/2035 Meningococcal B Vaccine Aged Out No l onger eligible based on patient's age to complete this topic Meningococcal Vaccine Aged Out No helen ja eligible based on patient's age to complete this topic Pneumococcal Vaccine: Pediatrics (0 to 5 Years) and At-Risk Patients (6 to 64 Years) Aged Out No longer eligible b ased on patient's age to complete this topic RSV Immunizations Under 20 Months Aged Out No longer eligible b ased on patient's age to complete this topic Additional Health Concerns Infection Onset Date Last Indicated 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
--- OUTSIDE RECORDS SUMMARY | 2024-11-28 09:44 | XMS_ITS | Continuity of Care Document ---
Author Organization [facility] Address [address] [place] [address] Phone Care Team Providers Care Solid Waste Management Engineer Name Role Phone Torres Atif Unavailable Unavailable Allergies, Adverse Reactions, Alerts Substance Reaction Status Criticality No Known Allergies Active No Inform ation Medications Medication Instructions Dosage Effective Dates (start - stop) Status Comments Advair Diskus 250 mcg-50 mcg/dose powder for inhalation - Active albuterol sulfate HFA 90 mcg/actuation aerosol inhaler - Active aspirin 81 mg tablet,delayed release - Active Procedures Procedure Date RADEX WRST COMPL MINIMUM 3 VIEWS 2023 OFFICE/OUTPATIENT VISIT NEW Advance Directives Directive Yes / No Effective Date File Name Other Directive No N/A N/A WARNING:The information contained in this section is historical and is provided for information only and does not constitute a legal document or any assurance that the information is still accurate. Please verify the information with the marinelli of the legal document before using it for clinical purposes. Encounters Encounter Description Practice Location Reason(s) For Visit Diagnoses Date Provider Providers Copied on Encounter OFFICE/OUTPA TIENT VISIT NEW [facility], [address], [place], [address], [place] tel:[phone] [facility] Pain in left wristArthritis of left wristBody mass index [BMI] 32.0-32.9, adult 4 Melissa Srivastava . [address], [place], [place], [id number] , [place]. tel:[phone] Referring Provider: Abhishek Liu, [address] [place], [address]. tel:[phone] Family History Family Member Type Diagnosis Age At Onset No Information Payers Payer name Insurance type Covered democrat ID Raad hopkins(ross Reddy PPO [id number] Social History Type Description Quantity Date Captured Comments Alcohol Use Details beer Caffeine Use Details Unknown Tobacco Use Status Current non-smoker Smoking Status Never smoker Non-Smoking Tobacco Use Details : No Details Available : No Details Available Sex Male Vital Signs Date / Time: Height Weight BMI Pulse Rate Blood Pressure Temperature Respiratory Rate Body Surface Area Head Circumference Head Circ. Percentile Wt./Candido. Percentile BMI percentile Pulse Ox Inhaled Ox 3:32 PM 69.00 in 99.790 kg (220.00 lbs) 32.4 9 kg/m eter (2) Chief Complaint And Reason For Visit No Information Reason For Referral Reason For Referral No Information Plan Of Treatment Date Type Action Status Goal Lifestyle education regardin g diet completed Referral Ordered: RADEX WRST COMPL MINIMUM 3 VIEWS LT wrist ordered History Of Present Illness Encounter Date Complaint History Of Prese nt Illness No Information Functional Status Date Functional Assessmen t No Information Instructions Date Instruction Additional Infor mation Lifestyle education regarding di et Related to Body mass index [BMI] 32.0-32.9, adult Assessments Type Assessment Date assessment Pain in left wrist assessment Arthritis of left wrist 024 assessment Body mass index [BMI] 32.0-32.9, adult Patient Care Teams Name Effective Dates (start - stop) Status Members No Information
--- OUTSIDE RECORDS SUMMARY | 2024-11-28 09:44 | XMS_ITS | CONTINUITY OF CARE DOCUMENT ---
Author Name marilyn sanders Address Unknown Organization [facility] Address [address] [place] [address] Phone [phone] Care Team Providers Care Clinical Operations Specialist Name Role Phone Leila Lisa MD Unavailable JANELL MARSHALL MD Unavailable JANELL MARSHALL MD Unavailable PROBLEMS Condition Status Date Provider Notes SHORTNESS OF BREATH active Leila Ferrer ASTHMA active Leila Lisa MD SNORING active Leila Lisa MD CHEST PAIN-TYPE TO BE DETERMINED active Jc Lisa MD ENCOUNTERS Date Type Provider Location Encounter Diag nosis - In-person encounter Office Visit Leila Lisa MD [facility] SHORTNESS OF BREATHASTHMASNORINGCHEST PAIN-TYPE TO BE DETERMINED VITAL SIGNS Date Observation Value Provider blood pressure, diastolic 72 mm[Hg] Pastor Lisa MD blood pressure, systolic 128 mm[Hg] Jc Lisa MD pulse rate 84 /min Leila Lisa MD oxygen saturation, oximetry 96 % Leila Lisa MD respiratory rate E&M 16 /min Jose C Lisa MD weight E&M 208 [lb_av] Leila Lisa MD height E&M 69 [in_i] Leila Lisa MD RESULTS Date Observation Value Provider Reference Range Interpretation Location platelet count 236 10*3/mm3 Rafa Avendaño hematocrit, blood 45.1 % Rafa Avendaño thyroid stimulating hormone, serum 1.48 u[IU]/mL Rafa Avendaño alanine aminotransferase (SGPT), serum 76 1/L Rafa Avendaño aspartate aminotransferase (SGOT), serum 37 1/L Rafa Avendaño creatinine, serum 0.93 mg/dL Rafa Avendaño potassium, serum 4.4 mmol/L [facility] sodium, serum 141 mmol/L Rafa Avendaño HISTORY OF MEDICATION USE Medication Status Instructions Dates Provider Indications Com ments PROAIR HFA 108 (90 Base) MCG/ACT INHALATION AEROSOL SOLUTION active 3 Leila Lisa MD SHORTNESS OF BREATH MONTELUKAST SODIUM 10 MG ORAL TABLET active 3 Leila Lisa MD ADVAIR DISKUS 250-50 MCG/DOSE INHALATION AEROSOL POWDER BREATH ACTIVATED active 1 puff twice daily 3 Leila Lisa MD SOCIAL HISTORY Date Observation Value Provider smoking status unknown if ever smoked Jc Lisa MD social history E&M Marital Statu s: Single L celestine alone E thnicity: Leila Lisa MD physical exercise, f requency, days per week yes Leila Lisa MD drug use none Leila Lisa MD social history reviewed E&M reviewed Leila Lisa MD MENTAL STATUS Date Observation Value Provider assessment of judgme nt and insight E&M Alert and oriented to time, place and person. Mood and affect are normal. Leila Lisa MD INSURANCE PROVIDERS Payer name Policy type / Coverage type [place] [employer] party [employer] Commercial insurance co gregg [id number] TREATMENT PLAN Date Name STR - Nuclear Complete Echo
--- OUTSIDE RECORDS SUMMARY | 2024-11-28 09:44 | XMS_ITS | Clinical Summary ---
Author Organization [facility] Address [address] [place] [address] Phone Care Team Providers Care Manager Learning Name Role Phone Abhishek Liu MD Primary Care Provider [phone] Allergies No known active allergies Medications aspirin (ASPIRIN LOW DOSE) 81 mg Tablet, Delayed Release (E.C.) Take 1 Tablet (81 mg) by mouth daily. 5 09/21/20 18 Active omeprazole (PriLOSEC) 20 mg Capsule, Delayed Release(E.C.) Take 2 Capsules (40 mg) by mouth daily. 180 Capsule 1 12/20/19 19 Active HYDROcodone-aceta minophen (NORCO) 10-325 mg TabletIndications :Elevated hemidiaphragm Take 1 Tablet by mouth every 4 hours as needed for Pain. Max Daily Amount: 6 Tablets 42 Tablet 07/14/2019 5:00 PM CDT 07/14/20 Active gabapentin (NEURONTIN) 300 mg capsule Take 1 Capsule (300 mg) by mouth 3 times daily. 90 Capsule 09/04/20 19 Active atorvastatin (LIPITOR) 10 mg tablet Take 10 mg by mouth daily. 02/15/20 20 Active Telmisartan-Hope chlorothiazid 80-12.5 mg Tablet Take 1 Tablet by mouth daily. 02/08/20 20 Active albuterol (PROVENTIL,VENTOL IN) 2.5 mg /3 mL (0.083 %) Solution for NebulizationIndic ations:Moderate persistent asthma without complication Take 3 mL (2.5 mg) by inhalation every 6 hours as needed for Shortness of Breath. 120 mL 5 02/27/20 20 Active fluticasone propion-salmetero L (ADVAIR DISKUS,WIXELA INHUB) 250-50 mcg/dose disk inhalerIndication s:Moderate persistent asthma without complication Take 1 Puff by inhalation 2 times daily. 60 Each 5 06/10/20 21 Active albuterol sulfate 90 mcg/Actuation inhalerIndication s:Moderate persistent asthma without complication Take 2 Puffs by inhalation every 6 hours as needed for Shortness of Breath. 8.5 Gram 5 06/10/20 21 Active montelukast (SINGULAIR) 10 mg tabletIndications :Moderate persistent asthma without complication Take 1 Tablet (10 mg) by mouth daily at bedtime. 90 Tablet 12/06/19 22 Active naloxone (NARCAN) 4 mg/spray [facility], Non-Aerosol EMERGENCY USE ONLY: Administer 1 spray (4 mg) in one nostril one time. May repeat in alternating nostrils every 2-3 min until responsive or EMS arrives. 2 Each 3 11/05/19 25 Active cefpodoxime (VANTIN) 200 mg Tablet Take 1 Tablet (200 mg) by mouth every 12 hours for 5 days. 10 Tablet 11/05/2024 5:01 PM PRE K TEACHER 11/05/19 25 025 azithromycin (ZITHROMAX) 250 mg tablet Take 1 Tablet (250 mg) by mouth daily for 5 days. 5 Tablet 11/05/2024 5:01 PM PRE K TEACHER 11/05/19 25 025 predniSONE (DELTASONE) 20 mg tablet Take 2 Tablets (40 mg) by mouth daily for 5 days. Take all doses with food. 10 Tablet 11/05/2024 5:01 PM PRE K TEACHER 11/05/19 25 025 oseltamivir (TAMIFLU) 75 mg capsule Take 1 Capsule (75 mg) by mouth 2 times daily for 7 doses. 7 Capsule 11/05/2024 5:01 PM PRE K TEACHER 11/05/19 25 025 Active Problems Patient Care Coordination No te Formatting of this note migh t be different from the original. DME for CPAP: IV Respiratory Care Problem Noted Date Diagnosed Date COPD with exacerbation 11/08/2024 Pneumonia of right lower lobe due to infectious organism 11/03/2024 Hypoxia 11/03/2024 PAULETTE (obstructive sleep apnea) 02/27/2020 Acute respiratory failure with hypoxia 08/17/201 9 Acute asthma exacerbation 04/30/2019 Productive cough 04/30/2019 Unstable angina 09/21/2018 Orthostatic hypotension 09/21/2018 Benign hypertension 09/21/2018 Mixed hyperlipidemia 09/21/2018 Chest pain 09/18/2018 Dyspnea 09/18/2018 Elevated troponin Elevated hemidiaphragm Hemidiaphragm paralysis Acute respiratory failure with hypoxia and hyper capnia Moderate persistent asthma without complication Atelectasis of right lung Hypoventilation Encounters Date Type Department Care Team Description 11/07/2024 External Device Data ST[facility] ABSTRACTION Provider, Abstract 11/07/2024 External Device Data [facility] ABSTRACTION Provider, Abstract 11/07/2024 External Device Data [facility] ABSTRACTION Provider, Abstract 11/03/2024 Travel 11/02/2024 11:59 PM PRE K TEACHER - 11/05/2024 5:01 PM PRE K TEACHER Hospital Encounter [facility] Clinical Decision Unit [address] [place] [address] Jackeline Casarez MD Zhang, Lawrence Xuan, MD Ambadi, Pragna, MD Acute asthma exacerbation Discharge Disposition: Home or Self Care from Last 3 Months Immunizations Immunization Administration Dates Next Due INFLUENZA VACCINE QUADRIVALENT 6 MOS UP PF IM Family History Medical History Relation Name Comments Asthma Brother 1 Depression Brother 1 Depression Brother 2 Other Brother 2 No Known Problems Daughter Heart Attack Father Heart Disease Father Heart Surgery Father Hypertension Father Hypertension Mother Other Sister 2 No Known Problems Son Relation Name Status Comments Brother 1 Alive Brother 2 Alive Daughter Alive Father Maternal Grandfather Maternal Grandmother Mother Alive Paternal Grandfather Paternal Grandmother Sister 1 Alive Sister 2 Alive Son Alive Social History Tobacco Use Types Packs/Day Years Used Date Smoking Tobacco: Never Smokeless Tobacco: Never Tobacco Cessation:Counseling Given: No Alcohol Use Standard Drinks/Week Comments Yes 0 (1 standard drink = 0.6 oz pur e alcohol) occasionally Feeling Safe Answer Date Recorded Within the last year, have y ou been afraid of your partner or ex-partner? Patient declined 04/30/2019 Within the last year, have y ou been humiliated or emotionally abused in other ways by your partner or ex-partner? Patient declined 04/30/2019 Within the last year, have y ou been kicked, hit, slapped, or otherwise physically hurt by your partner or ex-partner? Patient declined 04/30/2019 Within the last year, have y ou been raped or forced to have any kind of sexual activity by your partner or ex-partner? Patient declined 04/30/2019 Social Connections Answer Date Recorded In a typical week, how many times do you talk on the phone with family, friends, or neighbors? Patient declined 04/30/2019 How often do you get togethe r with friends or relatives? Patient declined 04/30/2019 How often do you attend restoration or orthodoxy serv ices? Patient declined 04/30/2019 Do you belong to any clubs o r organizations such as restoration groups, unions, fraternal or athletic groups, or school groups? Patient declined 04/30/2019 How often do you attend meet ings of the clubs or organizations you belong to? Patient declined 04/30/2019 Are you , , di vorced, , never , or living with a partner? Patient declined 04/30/2019 Financial Resource Strain Answer Date R ecorded How hard is it for you to pa y for the very basics like food, housing, medical care, and heating? Patient declined 04/30/2019 Food Insecurity Answer Date Recorded Within the past 12 months, y ou worried that your food would run out before you got the money to buy more. Patient declined Within the past 12 months, t he food you bought just didn't last and you didn't have money to get more. Patient declined Transportation Needs Answer Date Record ed In the past 12 months, has l ack of transportation kept you from medical appointments or from getting medications? Patient declined 04/30/2019 In the past 12 months, has l ack of transportation kept you from meetings, work, or from getting things needed for daily living? Patient declined 04/30/2019 Feeling Safe Answer Date Recorded Are you in a relationship wi th someone who hurts you emotionally and/or physically? 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 Not on file Not on file Not on file Last Filed Vital Signs Vital Sign Reading Time Taken Comments Blood Pressure 132/75 11/05/2024 11:46 AM PRE K TEACHER Pulse 68 11/05/2024 11:46 AM PRE K TEACHER Temperature 36.4 C (97.6 F) 11/05/2024 11:46 AM PRE K TEACHER Respiratory Rate 18 11/05/2024 11:46 AM PRE K TEACHER Oxygen Saturation 96% 11/05/2024 11:46 AM PRE K TEACHER Inhaled Oxygen Concentration - - Weight 99.8 kg (220 lb) 11/03/2024 12:05 AM PRE K TEACHER Height 177.8 cm (5' 10 ) 11/03/2024 12:05 AM PRE K TEACHER Body Mass Index 31.57 11/03/2024 12:05 AM PRE K TEACHER Plan of Treatment Upcoming Encounters Date Type Department Care Team (Late st Contact Info) Description 12/14/2024 9:40 AM CDT Office Visit [facility] Pulmonology - [facility] [id number] [address] [place] [address] [address] Health Maintenance Due Date Last Done Comments Pre-Diabetes and Diabetes Screening 1960 DTAP/TDAP/TD VACCINES (1 - Tdap) 01/04/1979 COLORECTAL SCREENING 01/04/2005 Colorectal Cancer Screening 01/04/2005 FIT-DNA Q 3 years 01/04/2005 FIT/FOBT Q 1 year 01/04/2005 Flex Sig/CT Colonography Q 5 years 01/04/2005 ZOSTER VACCINE (1 of 2) 01/04/2010 RSV VACCINE (60+ or ) (1 - Risk 60-74 years 1-dose series) 2020 INFLUENZA VACCINE (#1) 2024 07/14/2019 Medical Devices Implanted Type Area Road Engineer Device Identifier Shelf Expiration Date Model / Serial / Lot Hip Hip Procedures Procedure Name Priority Date/Time Associated Diagnosis Comments TELEMETRY REPORT 11/07/2024 1:41 PM PRE K TEACHER TELEMETRY REPORT 11/07/2024 12:1 5 PM PRE K TEACHER TELEMETRY REPORT 11/07/2024 12:0 8 PM PRE K TEACHER TELEMETRY REPORT 11/07/2024 11:1 7 AM PRE K TEACHER TELEMETRY REPORT 11/07/2024 11:0 5 AM PRE K TEACHER TELEMETRY REPORT 11/07/2024 10:1 3 AM PRE K TEACHER HOME O2 EVAL (DESATURATION SCREEN) Pending Discharge 11/05/2024 12:36 PM PRE K TEACHER US VENOUS DOPPLER LEG BILATERAL Pending Discharge 11/05/2024 11:32 AM PRE K TEACHER CBC WITHOUT DIFFERENTIAL Routine 11/05/2024 5:00 AM PRE K TEACHER PT EVAL AND TREAT Routine 11/03/2024 8:1 7 AM PRE K TEACHER OT EVAL AND TREAT Routine 11/03/2024 8:1 7 AM PRE K TEACHER BASIC METABOLIC PANEL Stat 11/03/2024 5:46 AM PRE K TEACHER CBC WITH DIFFERENTIAL Stat 11/03/2024 5:46 AM PRE K TEACHER TROPONIN 6 HR, 5TH GEN Timed Study 11/03/2024 5:46 AM PRE K TEACHER TROPONIN 2 HR, 5TH GEN Timed Study 11/03/2024 3:26 AM PRE K TEACHER XR CHEST PA OR AP 1 VW Stat 11/03/2024 12:21 AM PRE K TEACHER PROCALCITONIN Stat 11/03/2024 12:09 AM PRE K TEACHER TROPONIN BASELINE, 5TH GEN Stat 11/03/2024 12:09 AM PRE K TEACHER INFLUENZA A/B, RSV AND COVID-19 PCR PANEL Stat 11/03/2024 12:09 AM PRE K TEACHER INFLUENZA A/B, RSV AND COVID-19 PCR PANEL Stat 11/03/2024 12:09 AM PRE K TEACHER BRAIN NATRIURETIC PEPTIDE, BNP OR PROBNP Stat 11/03/2024 12:09 AM PRE K TEACHER COMPREHENSIVE METABOLIC PANEL Stat 11/03/2024 12:09 AM PRE K TEACHER CBC WITH DIFFERENTIAL Stat 11/03/2024 12:09 AM PRE K TEACHER RESPIRATORY PATHOGEN PCR PANEL Routine 11/03/2024 12:09 AM PRE K TEACHER EKG 12-LEAD Stat 11/03/2024 12:08 AM PRE K TEACHER from Last 3 Months Results * TELEMETRY REPORT (11/07/2024 1:41 PM PRE K TEACHER) Only the most recent of6 resultswithin the time period is included. us Provider Scanning ECG ORDERABLES Final Result * US VENOUS DOPPLER LEG BILATERAL (11/05/2024 11:32 AM PRE K TEACHER) Anatomical Region Laterality Modality Lower Extremity Ultrasound 11/05/2024 11:3 2 AM PRE K TEACHER Impressions 11/05/2024 11:36 AM PRE K TEACHER IMPRESSION: No evidence of deep venous thrombosis. DICTATION LOCATION: Location [address] [place] [address] Narrative 11/05/2024 11:36 AM PRE K TEACHER DUPLEX EXAMINATION OF THE BILATERAL LOWER EXTREMITY DEEP VEINS DATE: 11/05/2024 11:32 AM HISTORY: R/O PE FINDINGS: Duplex sonography with color Doppler and spectral analysis waveform interrogation was performed to evaluate the deep venous system of the bilateral lower extremity(ies). Doppler signals are obtained from the upper saphenous, common femoral, the proximal, mid and distal femoral, proximal profunda, popliteal and posterior tibial/peroneal veins. With transverse compression throughout those areas, the lumen is obliterated, excluding intraluminal thrombus. Augmentation is normal. Procedure Note Victorino Velazquez MD - 11/05/2024 DUPLEX EXAMINATION OF THE BILATERAL LOWER EXTREMITY DEEP VEINS DATE: 11/05/2024 11:32 AM HISTORY: R/O PE FINDINGS: Duplex sonography with color Doppler and spectral analysis waveform interrogation was performed to evaluate the deep venous system of the bilateral lower extremity(ies). Doppler signals are obtained from the upper saphenous, common femoral, the proximal, mid and distal femoral, proximal profunda, popliteal and posterior tibial/peroneal veins. With transverse compression throughout those areas, the lumen is obliterated, excluding intraluminal thrombus. Augmentation is normal. IMPRESSION: No evidence of deep venous thrombosis. DICTATION LOCATION: Location [address] [place] [address] Kaylah Welsh MD ORDERABLES Final Result * (ABNORMAL) CBC WITHOUT DIFFERENTIAL (11/05/2024 5:00 AM PRE K TEACHER) WBC 14.8(H) 4.0 - 9.8 K/uL 11/05/2024 6:23 AM [facility] [employer] [facility] RBC 5.14 4.50 - 5.40 M/uL 11/05/2024 6:23 AM [facility] HEMOGLOBIN 14.2 13.6 - 16.5 g/dL 11/05/2024 6:23 AM [facility] HEMATOCRIT 44.5 40.0 - 48.0 % 11/05/2024 6:23 AM [facility] [employer] [facility] MCV 86.6 82.0 - 99.0 fL 11/05/2024 6:23 AM [facility] [employer] [facility] MCH 27.6 27.2 - 32.6 pg 11/05/2024 6:23 AM [facility] [employer] [facility] MCHC 31.9 31.5 - 35.5 g/dL 11/05/2024 6:23 AM [facility] [employer] [facility] PLATELETS 206 140 - 350 K/uL 11/05/2024 6:23 AM [facility] [employer] [facility] MPV 11.7 9.3 - 12.4 fL 11/05/2024 6:23 AM [facility] [employer] [facility] RDW 13.6 11.5 - 14.5 % 11/05/2024 6:23 AM [facility] [employer] [facility] RDW-STDEV 43.4 37.1 - 48.7 fL 11/05/2024 6:23 AM [facility] [employer] [facility] Blood Venipuncture / Unknown 11/05/2024 5:00 AM PRE K TEACHER 11/05/2024 6:16 AM PRE K TEACHER us Dao ALVARENGA HEMATOLOGY ORDERABLES Final Res ult [facility] CLIA# [id number] [place] [address] * TROPONIN 6 HR, 5TH GEN (11/03/2024 5:46 AM PRE K TEACHER) TROPONIN T, 6 HR 5TH GEN 15 <=15 ng/L 11/03/2024 6:56 AM PRE K TEACHER [facility] [employer] [facility] DELTA 6HR TROPONIN T -2 See Interp. 11/03/2024 6:56 AM PRE K TEACHER [facility] Blood Venipuncture / Unknown 11/03/2024 5:46 AM PRE K TEACHER 11/03/2024 6:21 AM PRE K TEACHER Narrative [facility] - 11/03/2024 6:56 AM PRE K TEACHER Troponin Detectable but normal range. Delta indeterminate. us Gregory Reinoso MD CHEMISTRY ORDERABLES Cindy l Result [facility] CLIA# [id number] [place] [address] * (ABNORMAL) CBC WITH DIFFERENTIAL (11/03/2024 5:46 AM PRE K TEACHER) Only the most recent of2 resultswithin the time period is included. WBC 7.8 4.0 - 9.8 K/uL 11/03/2024 6:30 AM PRE K TEACHER [facility] [employer] [facility] RBC 5.37 4.50 - 5.40 M/uL 11/03/2024 6:30 AM [facility] HEMOGLOBIN 14.9 13.6 - 16.5 g/dL 11/03/2024 6:30 AM [facility] HEMATOCRIT 45.9 40.0 - 48.0 % 11/03/2024 6:30 AM [facility] MCV 85.5 82.0 - 99.0 fL 11/03/2024 6:30 AM PRE K TEACHER [facility]OR[facility] MCH 27.7 27.2 - 32.6 pg 11/03/2024 6:30 AM PRE K TEACHER [facility] MCHC 32.5 31.5 - 35.5 g/dL 11/03/2024 6:30 AM [facility] RDW 13.0 11.5 - 14.5 % 11/03/2024 6:30 AM PRE K TEACHER [facility] RDW-STDEV 40.2 37.1 - 48.7 fL 11/03/2024 6:30 AM PRE K TEACHER [facility] PLATELETS 204 140 - 350 K/uL 11/03/2024 6:30 AM PRE K TEACHER [facility] MPV 11.1 9.3 - 12.4 fL 11/03/2024 6:30 AM PRE K TEACHER [facility] NEUTROPHILS 89 % 11/03/2024 6:30 AM PRE K TEACHER [facility] LYMPHOCYTES 8 % 11/03/2024 6:30 AM PRE K TEACHER [facility] MONOCYTES 2 % 11/03/2024 6:30 AM PRE K TEACHER [facility] EOSINOPHILS 0 % 11/03/2024 6:30 AM PRE K TEACHER [facility] BASOPHILS 0 % 11/03/2024 6:30 AM [facility] IMMATURE GRANULOCYTES 0 % 11/03/2024 6:30 AM [facility] NEUTROPHIL ABSOLUTE 6.99 1.90 - 7.00 K/uL 11/03/2024 6:30 AM [facility] LYMPHOCYTE ABSOLUTE 0.63(L) 0.70 - 4.50 K/uL 11/03/2024 6:30 AM PRE K TEACHER [facility]OR[facility] MONOCYTE ABSOLUTE 0.15 0.10 - 1.30 K/uL 11/03/2024 6:30 AM PRE K TEACHER [facility] EOSINOPHIL ABSOLUTE 0.00 0.00 - 0.70 K/uL 11/03/2024 6:30 AM PRE K TEACHER [facility] BASOPHILS ABSOLUTE 0.03 0.00 - 0.20 K/uL 11/03/2024 6:30 AM [facility] IMMATURE GRANULOCYTES ABSOLUTE 0.03 0.00 - 0.03 K/uL 11/03/2024 6:30 AM [facility] Blood Venipuncture / Unknown 11/03/2024 5:46 AM PRE K TEACHER 11/03/2024 6:21 AM PRE K TEACHER Gregory Reinoso MD HEMATOLOGY ORDERABLES Fin al Result [facility] CLIA# [id number] [facility] [place] [address] * (ABNORMAL) BASIC METABOLIC PANEL (11/03/2024 5:46 AM PRE K TEACHER) SODIUM 136 136 - 145 mmol/L 11/03/2024 6:51 AM [facility] POTASSIUM 4.2 3.4 - 5.1 mmol/L 11/03/2024 6:51 AM [facility] CHLORIDE 103 98 - 107 mmol/L 11/03/2024 6:51 AM [facility] CO2 22 22 - 29 mmol/L 11/03/2024 6:51 AM [facility] CALCIUM 8.9 8.6 - 10.4 mg/dL 11/03/2024 6:51 AM [facility] BUN 14 6 - 20 mg/dL 11/03/2024 6:51 AM [facility] CREATININE 0.78 0.67 - 1.17 mg/dL 11/03/2024 6:51 AM [facility] GLUCOSE 144(H) 74 - 99 mg/dL 11/03/2024 6:51 AM [facility] GFR >60 >=60 mL/min/1.7 3 sq meter 11/03/2024 6:51 AM [facility] [employer] [facility] Comment:eGFR calculated with 2020 CKD-EPI equation. Vegetarian diet, extremely high or low muscle mass, and may affect results. Cystatin C with Glomerular Filtration Rate is a suitable alternative for these patients. ANION GAP 11 8 - 16 mmol/L 11/03/2024 6:51 AM PRE K TEACHER [facility] Blood Venipuncture / Unknown 11/03/2024 5:46 AM PRE K TEACHER 11/03/2024 6:21 AM PRE K TEACHER Gregory Reinoso MD CHEMISTRY ORDERABLES Cindy l Result Performing Organization Address [facility] Co de Phone Number [facility] [id number] [place] [address] * (ABNORMAL) TROPONIN 2 HR, 5TH GEN (11/03/2024 3:26 AM PRE K TEACHER) TROPONIN T, 2 HR 5TH GEN 16(H) <=15 ng/L 11/03/2024 5:43 AM PRE K TEACHER [facility] DELTA 2HR TROPONIN T -1 See Interp. 11/03/2024 5:43 AM PRE K TEACHER [facility] Blood Venipuncture / Unknown 11/03/2024 3:26 AM PRE K TEACHER 11/03/2024 4:01 AM PRE K TEACHER Narrative [facility] - 11/03/2024 5:43 AM PRE K TEACHER Troponin elevated. Delta not changing. Delay in collection of timed specimen beyond recommended collection interval. Results must be interpreted in clinical context. Jackeline Casarez MD CHEMISTRY ORDERABLES Final Resu lt Performing Organization Address [facility]/ZIP Co de Phone Number [facility]# [id number] [place] [address] * XR CHEST PA OR AP 1 VW (11/03/2024 12:21 AM PRE K TEACHER) Anatomical Region Laterality Modality Chest Computed Radiogr aphy 11/03/2024 12:2 2 AM PRE K TEACHER Impressions 11/03/2024 6:38 AM PRE K TEACHER IMPRESSION: 1. No acute pulmonary abnormality DICTATION LOCATION: Location 7 - [facility] Narrative 11/03/2024 6:38 AM PRE K TEACHER CHEST, ONE VIEW DATE: 11/03/2024 12:21 AM HISTORY: Shortness of Breath SOB. FINDINGS: The heart size is normal. The lungs are clear. No pleural effusion or pneumothorax present. The osseous structures are normal. Procedure Note Victorino Velazquez MD - 11/03/2024 CHEST, ONE VIEW DATE: 11/03/2024 12:21 AM HISTORY: Shortness of Breath SOB. FINDINGS: The heart size is normal. The lungs are clear. No pleural effusion or pneumothorax present. The osseous structures are normal. IMPRESSION: 1. No acute pulmonary abnormality DICTATION LOCATION: Location [address] [place] [address] us Gregory Reinoso MD DIAGNOSTIC IMAGING ORDERA BLES Final Result * INFLUENZA A/B, RSV AND COVID-19 PCR PANEL (11/03/2024 12:09 AM PRE K TEACHER) COVID-19 PCR NOT DETECTED Not Detected 11/03/19 1:40 AM PRE K TEACHER [facility] Influenza A by PCR NOT DETECTED Not Detected 11/03/2024 1:40 AM PRE K TEACHER [facility] Influenza B by PCR NOT DETECTED Not Detected 11/03/2024 1:40 AM PRE K TEACHER [facility] RSV by PCR NOT DETECTED Not Detected 11/03/2024 1:40 AM PRE K TEACHER [facility] Upper Respiratory ENTIRE NASOPHARYNX / Unknown Collection / Unknown 11/03/2024 12:09 AM PRE K TEACHER 11/03/2024 12:14 AM PRE K TEACHER Narrative [facility] - 11/03/2024 1:40 AM PRE K TEACHER This test has been authorized by the FDA under an Emergency Use Authorization for use by authorized laboratories. This test has been validated in accordance with the FDA's guidance regarding Coronavirus Disease-2019 testing. Optimum specimen types and timing for peak viral levels during infection have not been determined. A negative RT-PCR result does not rule out infection with the 2019-Novel Coronavirus. us Jackeline Casarez MD MICROBIOLOGY - GENERAL ORDERABL ES Final Result [facility]# [id number] [place] [address] * (ABNORMAL) TROPONIN BASELINE, 5TH GEN (11/03/2024 12:09 AM PRE K TEACHER) TROPONIN T, BASELINE 5TH GEN 17(H) <=15 ng/L 11/03/2024 1:40 AM PRE K TEACHER [facility] Blood Venipuncture / Unknown 11/03/2024 12:09 AM PRE K TEACHER 11/03/2024 1:25 AM PRE K TEACHER [facility] - 11/03/2024 1:40 AM PRE K TEACHER Troponin elevated. Jackeline Casarez MD CHEMISTRY ORDERABLES Final Resu lt [facility]# [id number] [place] [address] * PROCALCITONIN (11/03/2024 12:09 AM PRE K TEACHER) PROCALCITONIN <0.06 <2.01 ng/mL 11/03/2024 3:32 AM PRE K TEACHER [facility] Blood Venipuncture / Unknown 11/03/2024 12:09 AM PRE K TEACHER 11/03/2024 12:14 AM PRE K TEACHER [facility] - 11/03/2024 3:32 AM PRE K TEACHER The utility of procalcitonin is limited/NOT recommended in certain populations (e.g. newborns, dialysis/ESRD, patients with recent major surgery/trauma/velazquez, liver cirrhosis, viral hepatitis, certain cancers, etc.). Procalcitonin levels MUST be interpreted in the context of the patient's clinical condition and CANNOT be solely relied upon for diagnosis of infection. <0.25 ng/mL: Bacterial infection unlikely, particularly lower respiratory tract infections. <0.5 ng/mL: Low risk for progression to severe sepsis/septic shock. Localized infection possible. Measurements done early (<6 hours) after systemic process starts may still be low. 0.5-2 ng/mL: Moderate risk for progression to severe sepsis/septic shock. >2 ng/mL: High risk for progression to severe sepsis/septic shock. If antibiotics ARE administered, repeat testing is recommended every 2-3 days to help guide antibiotic cessation. Once a decrease of 80% or more has occurred from baseline, discontinuation of antibiotics should strongly be considered in clinically stable patients. Procalcitonin is produced in the setting of systemic inflammation, particularly bacterial infections. It is detectable within 2-4 hours and peaks within 6-24 hours. Jackeline Casarez MD CHEMISTRY ORDERABLES Final Resu lt [facility] CLIA# [id number] [place] [address] * (ABNORMAL) RESPIRATORY PATHOGEN PCR PANEL (11/03/2024 12:09 AM PRE K TEACHER) COVID-19 PCR NOT DETECTED Not Detected 11/04/19 12:57 PM PRE K TEACHER [facility] Influenza A by PCR DETECTED(A) Not Detected 11/04/2024 12:57 PM PRE K TEACHER [facility] Comment:Unable to subtype In fluenza A detected. Upper Respiratory ENTIRE NASOPHARYNX / Unknown Collection / Unknown 11/03/2024 12:09 AM PRE K TEACHER 11/03/2024 12:14 AM PRE K TEACHER Narrative [facility] - 11/04/2024 12:57 PM PRE K TEACHER The Film Array Respiratory Panel (RP2.1) is a multiplex nucleic acid detection test for 22 targets. Viruses: Adenovirus Coronavirus HKU1, NL63, 229E, and OC43 COVID-19/Severe Acute Respiratory Syndrome Coronavirus 2 Influenza A with the following subtypes: H1, H1-2009, and H3 Influenza B Human Metapneumovirus Parainfluenza virus 1, 2, 3, and 4 Respiratory Syncytial virus (RSV) Rhinovirus/Enterovirus (cannot differentiate due to genetic similarities) Bacteria: Bordetella pertussis Bordetella parapertussis Chlamydophila pneumoniae Mycoplasma pneumoniae Dao ALVARENGA MICROBIOLOGY - GENERAL ORDERABL ES Final Result Performing Organization Address [facility]/ZIP Co de Phone Number [facility] CLIA# [id number] [place] [address] * BRAIN NATRIURETIC PEPTIDE, BNP OR PROBNP (11/03/2024 12:09 AM PRE K TEACHER) PROBNP, N TERMINAL 160 0 - 900 pg/mL 11/03/2024 12:46 AM PRE K TEACHER [facility] [employer] [facility] Comment: INTERPRETIVE COMMENT based on diagnosis: Diagnostic NT pro-BNP cutoffs for Heart Failure in the absence of renal failure is suggested for the following ranges <75 years: <125 pg/mL >=75 years: <450 pg/mL Exclusionary rule out cut-point for Acute Decompensated Heart Failure(ADHF) All ages: <300 pg/mL Diagnostic NT pro-BNP cutoffs for Acute Decompensated Heart Failure(ADHF) in the absence of renal failure is suggested for the following ages <50 years: > 450 pg/mL 50-75 years: > 900 pg/mL >75 years: >1800 pg/mL Blood Venipuncture / Unknown 11/03/2024 12:09 AM PRE K TEACHER 11/03/2024 12:14 AM PRE K TEACHER Jackeline Casarez MD CHEMISTRY ORDERABLES Final Resu lt Performing Organization Address City/[facility]/ZIP Co de Phone Number [facility] [employer] [facility] CLIA# [id number] [address] [place] [address] * (ABNORMAL) COMPREHENSIVE METABOLIC PANEL (11/03/2024 12:09 AM PRE K TEACHER) SODIUM 136 136 - 145 mmol/L 11/03/2024 12:46 AM PRE K TEACHER [facility] [employer] [facility] POTASSIUM 4.6 3.4 - 5.1 mmol/L 11/03/2024 12:46 AM [facility] [employer] [facility] Comment:Slightly hemolyzed. Result may be falsely elevated. CHLORIDE 103 98 - 107 mmol/L 11/03/2024 12:46 AM [facility] [employer] [facility] CO2 21(L) 22 - 29 mmol/L 11/03/2024 12:46 AM [facility] CALCIUM 9.1 8.6 - 10.4 mg/dL 11/03/2024 12:46 AM [facility] BUN 16 6 - 20 mg/dL 11/03/2024 12:46 AM [facility] CREATININE 0.84 0.67 - 1.17 mg/dL 11/03/2024 12:46 AM [facility] GLUCOSE 131(H) 74 - 99 mg/dL 11/03/2024 12:46 AM [facility] TOTAL PROTEIN 7.6 6.3 - 8.7 g/dL 11/03/2024 12:46 AM [facility] ALBUMIN 4.0 3.5 - 5.2 g/dL 11/03/2024 12:46 AM [facility] BILIRUBIN TOTAL 0.3 0.2 - 1.1 mg/dL 11/03/2024 12:46 AM [facility] ALKALINE PHOSPHATASE 94 40 - 150 U/L 11/03/2024 12:46 AM [facility] AST 38 0 - 41 U/L 11/03/2024 12:46 AM [facility] Comment:Hemolysis present. R esult may be falsely elevated. ALT 27 0 - 41 U/L 11/03/2024 12:46 AM [facility] GFR >60 >=60 mL/min/1.7 3 sq meter 11/03/2024 12:46 AM [facility] Comment:eGFR calculated with 2020 CKD-EPI equation. Vegetarian diet, extremely high or low muscle mass, and may affect results. Cystatin C with Glomerular Filtration Rate is a suitable alternative for these patients. ANION GAP 12 8 - 16 mmol/L 11/03/2024 12:46 AM [facility] Blood Venipuncture / Unknown 11/03/2024 12:09 AM PRE K TEACHER 11/03/2024 12:14 AM [facility] Jackeline Casarez MD CHEMISTRY ORDERABLES Final Resu lt [facility]ORATORY [facility] - [facility]# [id number] [address] [place] [address] * EKG 12-LEAD (11/03/2024 12:08 AM PRE K TEACHER) 11/03/2024 12:0 8 AM PRE K TEACHER Narrative INTERFACE SYSTEM - 11/03/2024 3:08 [place] [address] Test Date: 2024-11-03 Pat Name: LEE RIOS Department: 90 Room: [address] [place] [address] Gender: Male Visitor Service Assistant: ar : 1960 Requested By: JACKELINE CASAREZ Order Number: [id number] Reading : Frank Cantu Measurements Intervals [place] Rate: 55 P: 47 CO: 172 QRS: -11 QRSD: 82 T: 38 QT: 436 QTc: 417 Interpretive Statements Sinus bradycardia Minimal voltage criteria for LVH Nonspecific T wave abnormality Abnormal ECG Compared to ECG 05/20/2019 02:37:49 Left ventricular hypertrophy now present Heart rate slower Electronically Signed On 11-03-2024 3:08:07 PRE K TEACHER by Frank Cantu Procedure Note Frank Cantu MD - 11/03/2024 [place] [address] Test Date: 2024-11-03 Pat Name: LEE RIOS Department: 90 Room: [address] [place] [address] Gender: Male Visitor Service Assistant: ar : 1960 Requested By: JACKELINE CASAREZ Order Number: [id number] Reading : Frank Cantu Measurements Intervals [place] Rate: 55 P: 47 CO: 172 QRS: -11 QRSD: 82 T: 38 QT: 436 QTc: 417 Interpretive Statements Sinus bradycardia Minimal voltage criteria for LVH Nonspecific T wave abnormality Abnormal ECG Compared to ECG 05/20/2019 02:37:49 Left ventricular hypertrophy now present Heart rate slower Electronically Signed On 11-03-2024 3:08:07 PRE K TEACHER by Frank Cantu us Jackeline Casarez MD ECG ORDERABLES Final Result INTERFACE SYSTEM Refer to clinic/hospital department from Last 3 Months Insurance CIGNA PPO RX [facility] RX [facility] RX DANIELLE PLANS (INTERNAL) [facility] Internal Plans Advance Directives For more information, please contact: [phone] * Full Code (Latest Code Status on File) Date Activated Date Inactivated Comments 11/03/2024 3:34 AM 11/05/2024 7:02 PM * Full Code Date Activated Date Inactivated Comments 07/10/2019 7:29 PM 07/14/2019 7:43 PM * Full Code Date Activated Date Inactivated Comments 07/10/2019 11:51 AM 07/10/2019 7:29 PM * Full Code Date Activated Date Inactivated Comments 05/20/2019 10:01 AM 05/22/2019 11:21 PM * Full Code Date Activated Date Inactivated Comments 04/30/2019 6:53 AM 05/01/2019 1:53 PM Care Teams Manager Learning Relationship Specialty Start Date End Date Abhishek Liu MD [address] [place] [id number] PCP - General Family Practice 09/21/18
--- OUTSIDE RECORDS SUMMARY | 2024-11-28 09:44 | XMS_ITS | Encounter Summary ---
Author Organization [facility] Address [address] [place] [address] Care Team Providers Care Surveying Crew Stake Runner Name Role Phone Abhishek Liu MD Primary Care Provider [phone] Encounter Details Date Type Department Care Team (Late Contact Info) Description 04/25/1999 Outpatient Historical [facility] José Lind MD Social History Tobacco Use Types Packs/Day Years Used Date Smoking Tobacco: Never Assessed Sex and Gender Information Value Date Recorded Sex Assigned at Not on file Legal Sex Male 3:21 AM EMBOSSER APPRENTICE Gender Identity Not on file Sexual Orientation Not on file documented as of this encounter Plan of Treatment Upcoming Encounters Date Type Department Care Team (Late st Contact Info) Description 12/14/2024 9:40 AM CDT Office Visit [facility] Pulmonology - [facility] [address] [address] [place] [address] [address] documented as of this encounter Visit Diagnoses Not on filedocumented in this encounter Additional Health Concerns Infection Onset Date Last Indicated Resolved Time R/O COVID-19 11/03/2024 11/03/2024 11/03/2024 1:40 AM EMBOSSER APPRENTICE Influenza 11/03/2024 11/03/2024 11/11/2024 1:17 AM EMBOSSER APPRENTICE R/O Respiratory 11/04/2024 11/03/2024 11/04/2024 1 2:57 PM EMBOSSER APPRENTICE documented as of this encounter Care Teams Surveying Crew Stake Runner Relationship Specialty Start Date End Date Abhishek Liu MD [address] [place] [address] PCP - General Family Practice 09/21/18 documented as of this encounter
== END 2024-11-28 09:04 | disposition home or self-care (01) ==
PROVIDERS: PCP Family Medicine; Visit Provider Family Medicine
DX: J45.909 Unspecified asthma, uncomplicated (principal); R94.2 Abnormal results of pulmonary function studies
CPT/HCPCS: 94060; 94726; 94729

== ENCOUNTER 2024-11-30 08:20 | Outpatient (CLI) | payer OTHER, SELFPAY | END 2024-11-30 08:21 | disposition home or self-care (01) | PROVIDERS: PCP Family Medicine; Visit Provider Internal Medicine Cardiovascular Disease | DX: R06.09 Other forms of dyspnea (principal); I35.8 Other nonrheumatic aortic valve disorders; I08.3 Combined rheumatic disorders of mitral, aortic and tricuspid valves; I27.20 Pulmonary hypertension, unspecified | CPT/HCPCS: 78452; 93017; 93306; A9502; J2785 ==

== ENCOUNTER 2025-04-20 13:47 | Outpatient (CLI) | payer OTHER, SELFPAY ==
--- OUTSIDE RECORDS SUMMARY | 2025-04-20 13:51 | XMS_ITS | Continuity of Care Document ---
Author Organization [facility] Address [address] [place] [address] Phone Care Team Providers Care Processing Lead Name Role Phone Torres Atif Unavailable Unavailable [...] OFFICE/OUTPA TIENT VISIT NEW [facility], [address], [place], [address], [place] tel:[phone] [facility] Pain in left wristArthritis of left wristBody mass index [BMI] 32.0-32.9, adult 4 Melissa Srivastava . [address], [place], [place], [address] , [place]. tel:[phone] Referring Provider: Abhishek Liu, [address] [place], [address]. tel:[phone] Family History Family Member Type Diagnosis Age At Onset No Information Payers Payer name Insurance type Covered alliance party ID Raad hopkins(ross Reddy PPO [id number] Social History Type Description Quantity Date Captured [...]
--- OUTSIDE RECORDS SUMMARY | 2025-04-20 13:51 | XMS_ITS | Clinical Summary ---
Author Organization [facility] Address [address] [place] [address] Phone Care Team Providers Care Pattern Keeper Name Role Phone Abhishek Liu MD Primary Care Provider [phone] Allergies No known active allergies Medications aspirin [...] Max Daily Amount: 6 Tablets 42 Tablet 9 5:00 PM CDT 07/14/20 Active gabapentin (NEURONTIN) 300 mg capsule Take 1 Capsule (300 mg) by mouth 3 times daily. 90 Capsule 09/04/20 19 Active atorvastatin (LIPITOR) 10 mg tablet Take 10 mg by mouth daily. 02/15/20 20 Active Telmisartan-Seymour chlorothiazid 80-12.5 mg Tablet Take 1 Tablet by mouth daily. 02/08/20 20 Active albuterol (PROVENTIL,VENTOL IN) 2.5 mg /3 mL (0.083 %) Solution for NebulizationIndic ations:Moderate persistent asthma without complication Take 3 mL (2.5 mg) by inhalation every 6 hours as needed for Shortness of Breath. 120 mL 5 02/27/20 20 Active naloxone (NARCAN) 4 mg/spray [place], Non-Aerosol EMERGENCY USE ONLY: Administer 1 spray (4 mg) in one nostril one time. May repeat in alternating nostrils every 2-3 min until responsive or EMS arrives. 2 Each 11/05/19 Active allopurinoL (ZYLOPRIM) 100 mg tablet Take 100 mg by mouth daily. Active albuterol sulfate HFA 90 mcg/actuation aerosol inhalerIndication s:Asthma-COPD overlap syndrome (CMS/HCC) Take 2 Puffs by inhalation every 6 hours as needed for Shortness of Breath. 8.5 Gram 5 12/15/19 25 Active fluticasone-umecl idinium-vilantero l (Trelegy Ellipta) 200-62.5-25 mcg Disk with DeviceIndications :Asthma-COPD overlap syndrome (CMS/HCC) Take 1 Puff by inhalation daily. 90 Each 03/28/20 Active montelukast (SINGULAIR) 10 mg tabletIndications :Moderate persistent asthma without complication Take 1 Tablet (10 mg) by mouth daily at bedtime. 90 Tablet 03/28/20 Active fluticasone propion-salmetero L (ADVAIR DISKUS,WIXELA INHUB) 250-50 mcg/dose disk inhalerIndication s:Moderate persistent asthma without complication Take 1 Puff by inhalation 2 times daily. 60 Each 5 06/10/20 21 025 Discontinu ed(Alterna te therapy prescribed ) montelukast (SINGULAIR) 10 mg tabletIndications :Moderate persistent asthma without complication Take 1 Tablet (10 mg) by mouth daily at bedtime. 90 Tablet 12/06/19 22 025 Discontinu ed(Reorder ) fluticasone-umecl idinium-vilantero l (Trelegy Ellipta) 200-62.5-25 mcg Disk with DeviceIndications :Asthma-COPD overlap syndrome (CMS/HCC) Take 1 Puff by inhalation daily. 60 Each 5 12/15/19 25 025 Discontinu ed(Reorder ) Breo Ellipta 100-25 mcg/dose Disk with Device INHALE 1 PUFF BY INHALATION ROUTE ONCE DAILY AT THE SAME TIME EACH DAY 02/03/20 25 025 Discontinu ed(Alterna te therapy prescribed ) Active Problems Patient Care Coordination No te Formatting of this note migh t be different from the original. DME for CPAP: IV Respiratory Care Problem Noted Date Diagnosed Date Asthma-COPD overlap syndrome 12/14/2024 COPD with exacerbation 11/08/2024 Pneumonia of right lower lobe due to infectious organism 11/03/2024 Hypoxia 11/03/2024 PAULETTE (obstructive sleep apnea) 02/27/2020 Acute respiratory failure with hypoxia 9 Acute asthma exacerbation 04/30/2019 Productive cough 04/30/2019 Unstable angina 09/21/2018 Orthostatic hypotension 09/21/2018 Benign hypertension 09/21/2018 Mixed hyperlipidemia 09/21/2018 Chest pain 09/18/2018 Dyspnea 09/18/2018 Elevated troponin Elevated hemidiaphragm Paralyzed hemidiaphragm Acute respiratory failure with hypoxia and hyper capnia Moderate persistent asthma without complication Atelectasis of right lung Hypoventilation Encounters Date Type Department Care Team Description 03/28/2025 3:15 PM CDT Office Visit [facility] Pulmonology - [facility] [address] [facility] [address] [place] [phone] Taniya Lezama, MARIANNE Asthma-COPD overlap syndrome (CMS/HCC) (Primary Dx); Paralyzed hemidiaphragm; PAULETTE on CPAP; Moderate persistent asthma without complication 03/06/2025 External Device Data ST[facility] ABSTRACTION Provider, Abstract 03/06/2025 External Device Data ST[facility] ABSTRACTION Provider, Abstract 02/13/2025 External Device Data [place] ABSTRACTION Provider, Abstract 02/06/2025 External Device Data [facility] ABSTRACTION Provider, Abstract from Last 3 Months Immunizations Immunization Administration [...] Not Answered Alcohol Use Standard Drinks/Week Comments Yes 0 (1 standard drink = 0.6 oz pur e alcohol) occasionally Sex and Gender Information Value Date Recorded Sex Assigned at Not on file Legal Sex Male 3:21 AM DIRECTOR OF GUIDANCE Gender Identity Not on file Sexual Orientation Not on file 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 Not on file Not on file Last Filed Vital Signs Vital Sign Reading Time Taken Comments Blood Pressure 152/64 03/28/2025 2:53 PM CDT Pulse 41 03/28/2025 2:53 PM CDT Temperature 36.7 C (98 F) 03/28/2025 2:53 PM CDT Respiratory Rate 16 03/28/2025 2:53 PM CDT Oxygen Saturation 96% 03/28/2025 2:53 PM CDT Inhaled Oxygen Concentration - - Weight 102.6 kg (226 lb 3.2 oz) 03/28/2025 2:53 PM CDT Height 177.8 cm (5' 10) 03/28/2025 2:53 PM CDT Body Mass Index 32.46 03/28/2025 2:53 PM CDT Plan of Treatment Upcoming Encounters Date Type Department Care Team (Late st Contact Info) Description 08/28/2025 1:20 PM DIRECTOR OF GUIDANCE Office Visit [facility] Pulmonology - [facility] [address] [address] [place] [address] [address] Health Maintenance Due Date Last Done Comments Pre-Diabetes and Diabetes Screening 1960 DTAP/TDAP/TD VACCINES (1 - Tdap) 01/04/1979 PNEUMOCOCCAL VACCINE 50+ YEARS (1 of 2 - PCV) 01/04/19 79 COLORECTAL SCREENING 01/04/2005 Colorectal Cancer Screening 01/04/2005 FIT-DNA Q 3 years 01/04/2005 FIT/FOBT Q 1 year 01/04/2005 Flex Sig/CT Colonography Q 5 years 01/04/2005 ZOSTER VACCINE (1 of 2) 01/04/2010 RSV VACCINE (60+ or ) (1 - Risk 60-74 years 1-dose series) 2020 INFLUENZA VACCINE (#1) 2025 07/14/2019 Medical Devices Implanted Type Area Landscape Foreman Device Identifier Shelf Expiration Date Model / Serial / Lot Hip Hip Insurance CIGNA PPO RX [facility] [employer] RX [facility] [employer] RX DANIELLE PLANS (INTERNAL) [facility] Internal Plans Advance Directives For more information, please contact: [phone] * Full Code (Latest Code Status on [...] 6:53 AM 05/01/2019 1:53 PM Care Teams Pattern Keeper Relationship Specialty Start Date End Date Abhishek Liu MD [address] [place] [address] PCP - General Family Practice 09/21/18
--- OUTSIDE RECORDS SUMMARY | 2025-04-20 13:51 | XMS_ITS | Clinical Summary ---
Author Organization [facility] Address [facility] [place] [address] Care Team Providers Care Slate Roofer Helper Name Role Phone Abhishek Liu MD Primary Care Provider [phone] Allergies No known active allergies Medications fluticasone-salm [...] Sex Assigned at Male 09/09/2023 9:16 PM REPAIRING CALIBRATOR Legal Sex Male 8:09 PM CDT Gender Identity Male 09/09/2023 9:16 PM REPAIRING CALIBRATOR Sexual Orientation Straight 09/09/2023 9: 16 PM REPAIRING CALIBRATOR Last Filed Vital Signs Vital Sign Reading Time Taken Comments Blood Pressure 163/90 09/09/2023 9:10 PM REPAIRING CALIBRATOR Pulse 49 09/09/2023 9:10 PM REPAIRING CALIBRATOR Temperature 36.7 C (98 F) 09/09/2023 9:10 PM REPAIRING CALIBRATOR Respiratory Rate 18 09/09/2023 9:10 PM REPAIRING CALIBRATOR Oxygen Saturation 93% 09/09/2023 9:10 PM REPAIRING CALIBRATOR Inhaled Oxygen Concentration - - Weight 98.9 kg (218 lb) 09/09/2023 9:10 PM REPAIRING CALIBRATOR Height 175.3 cm (5' 9) 09/09/2023 9:10 PM REPAIRING CALIBRATOR Body Mass Index 32.19 09/09/2023 9:10 PM REPAIRING CALIBRATOR Plan of Treatment Health Maintenance Due Date Last Done Comments Colorectal Cancer Screening Colonoscopy (10 Years) 1960 Hepatitis C 01/04/1978 Pneumococcal Vaccine: 50+ Years (1 of 1 - PCV) 01/04/2010 Zoster Vaccines (1 of 2) 01/04/2010 COVID-19 Vaccine (1 - 2023-2 5 season) 2024 DTaP, Tdap and Td Vaccines ( 3 [...] Date Last Indicated MRSA 10/24/2018 10/24/2018 Insurance Advance Directives Documents on File Type Date Recorded Patient Platemaker Expl anation Advance Directives and Living Will 11/18/2016 SADVANCE DIRECTIVES Advance Directives and Living Will 11/18/2016 Care Teams Slate Roofer Helper Relationship Specialty Start Date End Date Abhishek Liu MD [address] [place] [address] PCP - General FAMILY PRACTICE 09/09/23
--- OUTSIDE RECORDS SUMMARY | 2025-04-20 13:51 | XMS_ITS | Encounter Summary ---
Author Organization [facility] Address [address] [place] [address] Care Team Providers Care Press Washer Name Role Phone Abhishek Liu MD Primary Care Provider [phone] Encounter Details Date Type Department Care Team (Late Contact Info) Description 04/25/1999 Outpatient Historical [facility] José Lind MD Social History Tobacco Use Types Packs/Day Years Used Date Smoking Tobacco: Never Assessed Sex and Gender Information Value Date Recorded Sex Assigned at Not on file Legal Sex Male 3:21 AM SENIOR BACK END JAVA DEVELOPER Gender Identity Not on file Sexual Orientation Not on file documented as of this encounter Plan of Treatment Upcoming Encounters Date Type Department Care Team (Late st Contact Info) Description 08/28/2025 1:20 PM SENIOR BACK END JAVA DEVELOPER Office Visit [facility] Pulmonology - [facility] [address] [address] [place] [address] [address] documented as of this encounter Visit Diagnoses Not on filedocumented in this encounter Additional Health Concerns Infection Onset Date Last Indicated Resolved Time R/O COVID-19 11/03/2024 11/03/2024 11/03/2024 1:40 AM SENIOR BACK END JAVA DEVELOPER Influenza 11/03/2024 11/03/2024 11/11/2024 1:17 AM SENIOR BACK END JAVA DEVELOPER R/O Respiratory 11/04/2024 11/03/2024 11/04/2024 1 2:57 PM SENIOR BACK END JAVA DEVELOPER documented as of this encounter Care Teams Press Washer Relationship Specialty Start Date End Date Abhishek Liu MD [address] [place] [address] PCP - General Family Practice 09/21/18 documented as of this encounter
[2025-04-20 14:08] LABS: Hematocrit 44.1 % (37.0-46.0); Hemoglobin 14.5 g/dL (12.4-15.3); Mean Corpuscular HGB Conc 32.9 g/dL (32-36); Mean Corpuscular Hemoglobin 28.2 pg (27.0-31.0); Mean Corpuscular Volume 85.8 fL (78.0-102.0); Platelet Count Result 222 K/mm3 (150-420); Red Blood Count 5.14 M/mm3 (4.70-6.10); White Blood Count 8.3 K/mm3 (4.8-10.8)
[2025-04-20 14:34] LABS: Alanine Aminotransferase 40 U/L (6-50); Albumin Level 4.1 g/dL (3.5-5.1); Alkaline Phosphatase 96 U/L (38-126); Anion Gap 5 mmol/L (4-12); Aspartate Amino Transferase 38 U/L (17-59); Bilirubin,Total 0.4 mg/dL (0.2-1.3); Blood Urea Nitrogen 22 mg/dL (9-20); Calcium 9.2 mg/dL (8.4-10.2); Carbon Dioxide 26 mmol/L (22-30); Chloride 106 mmol/L (98-107); Estimated Glomerular Filt Rate > 60; Glucose 123 mg/dL (65-110); Osmolality Calculated 288 mOsm/kg (285-295); Potassium 5.2 mmol/L (3.4-5.0); Sodium 137 mmol/L (137-145); Total Protein 7.4 g/dL (6.3-8.2); Uric Acid 6.7 mg/dL (3.5-8.5)
== END 2025-04-20 13:48 | disposition home or self-care (01) ==
PROVIDERS: PCP Family Medicine; Visit Provider Nurse Practitioner Family
DX: M10.9 Gout, unspecified (principal)
CPT/HCPCS: 36415; 80053; 84550; 85027

== ENCOUNTER 2025-05-18 09:14 | Outpatient (CLI) | payer OTHER, SELFPAY ==
--- NOTE | ~2025-05-18 | XR_ITS ---
EXAM: XR ankle RT min 3V, XR foot RT min 3V DATE: 05/18/2025 09:40 HISTORY: pain of right heel x2 days, NKI . COMPARISON: None available. FINDINGS: Normal mineralization. No fracture or dislocation. No lytic or blastic lesion. Mild scatte red degenerative changes. Hallux valgus. Achilles and plantar enthesopathy. No erosion or periosteal change. Soft tissues within normal limits. IMPRESSION: No acute osseous finding in the right ankle or foot. Reviewed, dictated and finalized at location K. IMPRESSION: No acute osseous finding in the right ankle or foot.
--- OUTSIDE RECORDS SUMMARY | 2025-05-18 09:20 | XMS_ITS | Clinical Summary ---
Author Organization [facility] Address [address] [place] [address] Phone Care Team Providers Care Autism Tutor Name Role Phone Abhishek Liu MD Primary Care Provider [phone] Allergies No known active allergies Medications aspirin (ASPIRIN LOW DOSE) 81 mg Tablet, Delayed Release (E.C.) Take 1 Tablet (81 mg) by mouth daily. 5 8 Active omeprazole (PriLOSEC) 20 mg Capsule, Delayed Release(E.C.) Take 2 Capsules (40 mg) by mouth daily. 180 Capsule 1 9 Active HYDROcodone-aceta minophen (NORCO) 10-325 mg TabletIndications :Elevated hemidiaphragm Take 1 Tablet by mouth every 4 hours as needed for Pain. Max Daily Amount: 6 Tablets 42 Tablet 07/14/2019 5:00 PM CDT 9 Active gabapentin (NEURONTIN) 300 mg capsule Take 1 Capsule (300 mg) by mouth 3 times daily. 90 Capsule 9 Active atorvastatin (LIPITOR) 10 mg tablet Take 10 mg by mouth daily. 0 Active Telmisartan-[place] chlorothiazid 80-12.5 mg Tablet Take 1 Tablet by mouth daily. 0 Active albuterol (PROVENTIL,VENTOL IN) 2.5 mg /3 mL (0.083 %) Solution for NebulizationIndic ations:Moderate persistent asthma without complication Take 3 mL (2.5 mg) by inhalation every 6 hours as needed for Shortness of Breath. 120 mL 5 0 Active naloxone (NARCAN) 4 mg/spray [place], Non-Aerosol EMERGENCY USE ONLY: Administer 1 spray (4 mg) in one nostril one time. May repeat in alternating nostrils every 2-3 min until responsive or EMS arrives. 2 Each 3 5 Active allopurinoL (ZYLOPRIM) 100 mg tablet Take 100 mg by mouth daily. Active albuterol sulfate HFA 90 mcg/actuation aerosol inhalerIndication s:Asthma-COPD overlap syndrome (CMS/HCC) Take 2 Puffs by inhalation every 6 hours as needed for Shortness of Breath. 8.5 Gram 5 5 Active fluticasone-umecl idinium-vilantero l (Trelegy Ellipta) 200-62.5-25 mcg Disk with DeviceIndications :Asthma-COPD overlap syndrome (CMS/HCC) Take 1 Puff by inhalation daily. 90 Each 3 5 Active montelukast (SINGULAIR) 10 mg tabletIndications :Moderate persistent asthma without complication Take 1 Tablet (10 mg) by mouth daily at bedtime. 90 Tablet 3 5 Active Active Problems Patient Care Coordination No te [...] Encounters Date Type Department Care Team Description 05/09/2025 External Device Data ST[facility] ABSTRACTION Provider, Abstract 05/08/2025 External Device Data ST[facility] ABSTRACTION Provider, Abstract 03/28/2025 3:15 PM CDT Office Visit [facility] Pulmonology - [facility] [address] [address] [address] [place] [address] Taniya Lezama NP Asthma-COPD overlap syndrome (CMS/HCC) (Primary Dx); Paralyzed [...] on file Legal Sex Male 3:21 AM SILICATOR Gender Identity Not on file Sexual Orientation Not on file 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 [...] st Contact Info) Description 08/28/2025 1:20 PM SILICATOR Office Visit [facility] Pulmonology - [facility] [address] [place] [address] [place] [address] [facility] [address] [place] [address] Health Maintenance Due Date Last Done [...] 2025 07/14/2019 Medical Devices Implanted Type Area Support Assistant Device Identifier Shelf Expiration Date Model / Serial / Lot Hip Hip Insurance CIGNA PPO Caremark RX [facility] Caremark RX DANIELLE PLANS (INTERNAL) [facility] Internal Plans Advance Directives For more information, please contact: [phone] * Full Code (Latest Code Status on [...] 6:53 AM 05/01/2019 1:53 PM Care Teams Autism Tutor Relationship Specialty Start Date End Date Abhishek Liu MD [address] [place] [address] PCP - General Family Practice 09/21/18
--- OUTSIDE RECORDS SUMMARY | 2025-05-18 09:20 | XMS_ITS | Encounter Summary ---
Author Organization [facility] Address [address] [place] [address] Care Team Providers Care Manager Field Name Role Phone Abhishek Liu MD Primary Care Provider [phone] Encounter Details Date Type Department Care Team (Late Contact Info) Description 04/25/1999 Outpatient Historical [facility] José Lind MD Social History Tobacco Use Types Packs/Day Years Used Date Smoking Tobacco: Never Assessed Sex and Gender Information Value Date Recorded Sex Assigned at Not on file Legal Sex Male 3:21 AM ORNAMENTAL PLASTER STICKER Gender Identity Not on file Sexual Orientation Not on file documented as of this encounter Plan of Treatment Upcoming Encounters Date Type Department Care Team (Late st Contact Info) Description 08/28/2025 1:20 PM ORNAMENTAL PLASTER STICKER Office Visit [facility] Pulmonology - [facility] [address] [address] [place] [address] [address] documented as of this encounter Visit Diagnoses Not on filedocumented in this encounter Additional Health Concerns Infection Onset Date Last Indicated Resolved Time R/O COVID-19 11/03/2024 11/03/2024 11/03/2024 1:40 AM ORNAMENTAL PLASTER STICKER Influenza 11/03/2024 11/03/2024 11/11/2024 1:17 AM ORNAMENTAL PLASTER STICKER R/O Respiratory 11/04/2024 11/03/2024 11/04/2024 1 2:57 PM ORNAMENTAL PLASTER STICKER documented as of this encounter Care Teams Manager Field Relationship Specialty Start Date End Date Abhishek Liu MD [address] [place] [address] PCP - General Family Practice 09/21/18 documented as of this encounter
--- OUTSIDE RECORDS SUMMARY | 2025-05-18 09:20 | XMS_ITS | Continuity of Care Document ---
Author Organization [facility] Address [address] [place] [address] Phone Care Team Providers Care Registered Nurse Cardiac Telemetry Name Role Phone Torres Atif Unavailable Unavailable [...] OFFICE/OUTPA TIENT VISIT NEW [facility], [address], [place], [address], [place] tel:[phone] [facility] Pain in left wristArthritis of left wristBody mass index [BMI] 32.0-32.9, adult 4 Melissa Srivastava . [address], [place], [place], [id number] , [place]. tel:[phone] Referring Provider: Abhishek Liu, [address] [place], [address]. tel:[phone] Family History Family Member Type Diagnosis Age At Onset No Information Payers Payer name Insurance type Covered republican ID Raad hopkins(ross Reddy PPO OT [id number] Social History Type Description Quantity Date Captured [...]
== END 2025-05-18 09:15 | disposition home or self-care (01) ==
LOC: CHSIMG 09:17
PROVIDERS: PCP Family Medicine; Visit Provider Family Medicine
DX: M79.671 Pain in right foot (principal)
CPT/HCPCS: 73610; 73630

== ENCOUNTER 2025-09-29 17:48 | Emergency (ER) | payer OTHER, SELFPAY ==
--- OUTSIDE RECORDS SUMMARY | 2025-09-25 09:50 | XMS_ITS | Continuity of Care Document ---
Author Organization [facility] Address [address] [place] [address] Phone Care Team Providers Care Cushion Worker Name Role Phone Lio Beatty MD Unavailable Unavailable Allergies, Adverse Reactions, Alerts Substance Reaction Status Criticality No Known Allergies Active No Inform ation Medications Medication Instructions Dosage Effective Dates (start - stop) Status Comments Trelegy Ellipta 200 mcg-62.5 mcg-25 mcg powder for inhalation INHALE 1 PUFF EVERY DAY - Active montelukast 10 mg tablet - A ctive metoprolol succinate ER 25 mg tablet,extended release 24 hr - Active methylprednisolone 4 mg tablets in a dose pack - Active colchicine 0.6 mg tablet TAKE 2 TABS BY ORAL ROUTE ON DAY 1, TAKE 1 TABLET BY ORAL ROUTE ONCE DAILY FOR 6 DAYS - Active albuterol sulfate 2.5 mg/3 mL (0.083 %) solution for nebulization 1 VIAL(S) BY NEBULIZER 4 TIMES NEEDED FOR COUGH AND WHEEZING - Active azithromycin 250 mg tablet TAKE 2 TABLET S BY MOUTH TODAY, THEN TAKE 1 TABLET DAILY FOR 4 DAYS DIRECTED - Active Breo Ellipta 100 mcg-25 mcg/dose powder for inhalation - Active cefpodoxime 200 mg tablet - Active oseltamivir 75 mg capsule - Active prednisone 20 mg tablet - Ac tive atorvastatin 20 mg tablet - Active telmisartan 80 mg-hydrochlorothiazide 12.5 mg tablet - Active Advair Diskus 250 mcg-50 mcg/dose powder for inhalation - Active albuterol sulfate HFA 90 mcg/actuation aerosol inhaler - Active aspirin 81 mg tablet,delayed release - Active Procedures Procedure Date Ultra Sling OFFICE/OUTPATIENT VISIT EST HOT OR COLD PACKS THERAPY THERAPEUTIC EXERCISES THERAPEUTIC ACTIVITIES NEUROMUSCULAR REEDUCATION MANUAL THERAPY HOT OR COLD PACKS THERAPY THERAPEUTIC EXERCISES THERAPEUTIC ACTIVITIES NEUROMUSCULAR REEDUCATION MANUAL THERAPY HOT OR COLD PACKS THERAPY THERAPEUTIC EXERCISES THERAPEUTIC ACTIVITIES NEUROMUSCULAR REEDUCATION MANUAL THERAPY HOT OR COLD PACKS THERAPY THERAPEUTIC EXERCISES THERAPEUTIC ACTIVITIES NEUROMUSCULAR REEDUCATION MANUAL THERAPY HOT OR COLD PACKS THERAPY THERAPEUTIC EXERCISES THERAPEUTIC ACTIVITIES NEUROMUSCULAR REEDUCATION MANUAL THERAPY PT EVAL LOW COMPLEX 20 MIN HOT OR COLD PACKS THERAPY THERAPEUTIC ACTIVITIES SELF CARE MNGMENT TRAINING MANUAL THERAPY RADEX PATRICK COMPL MINIMUM 2 VIEWS OFFICE/OUTPATIENT VISIT EST RADEX WRST COMPL MINIMUM 3 VIEWS 2023 OFFICE/OUTPATIENT VISIT NEW Advance Directives Directive Yes / No Effective Date File Name Resuscitation Not Answered N/A N/A Life Support Not Answered N/A N/A Intubation Not Answered N/A N/A Antibiotics Not Answered N/A N/A IV Fluid Support Not Answered N/A N/A Tube Feed Not Answered N/A N/A Other Directive N/A N/A WARNING:The information contained in this [...] Providers Copied on Encounter OFFICE/OUTPA TIENT VISIT EST [facility], [address], [place], [address], [place] tel:[phone] [facility] Primary osteoarthritis , right shoulderStatus post total replacement of right shoulder Sep- 3- 5 Jaci Vaca. [address], [place], [place], [id number] , [place]. tel:[phone] [facility], [address] [facility], [place], [address], [place] tel:[phone] [facility] Pain in right shoulderPrimar y osteoarthritis , right shoulder Sep- 2- 5 Martin DELIVERY AIDE Tyler. [address], [place], [place], [id number] . tel:[phone] Referring Provider: Lio Beatty, [address], [place], [address]. [facility], [address] [facility], [place], [address], [place] tel:[phone] [facility] Pain in right shoulderPrimar y osteoarthritis , right shoulder Sep- 5 Zheng Silva. [address], [place], [place], [id number] . tel:[phone] Referring Provider: Lio Beatty, [address], [place], [address]. [facility], [address], [place], [address], [place] tel:[phone] [facility] Pain in right shoulderPrimar y osteoarthritis , right shoulder Sep-10 10- 5 Martin DELIVERY AIDE Tyler. [address], [place], [place], [id number] . tel:[phone] Referring Provider: Lio Beatty, [address], [place], [address]. [facility], [address] [facility], [place], [address], [place] tel:[phone] [facility] Pain in right shoulder 0-202 5 Zheng Silva. [address], [place], [place], [id number] . tel: [phone] Referring Provider: Lio Beatty, [address], [place], [address]. [facility], [address], [place], [address], [place] tel:[phone] [facility] Pain in right shoulderOsteoa rthritis of right glenohumeral joint 0 8-202 5 Zheng Silva. [address], [place], [place], [id number] . tel: [phone] Referring Provider: Lio Beatty, [address], [place], [address]. [facility], [address] [facility], [place], [address], [place] tel:[phone] [facility] Pain in right shoulderOsteoa rthritis of right glenohumeral joint 3- 5 Zheng Silva. [address], [place], [place], [id number] . tel: [phone] Referring Provider: Lio Beatty, [address], [place], [address]. OFFICE/OUTPA TIENT VISIT EST [facility], [address], [place], [address], [place] tel:[phone] [facility] Pain in right shoulderOsteoa rthritis of right glenohumeral joint 5 Jaci Vaca. [address], [place], [place], [id number] , [place]. tel: [phone] OFFICE/OUTPA TIENT VISIT NEW [facility], [address], [place], [address], [place] tel:[phone] [facility] Pain in left wristArthritis of left wristBody mass index [BMI] 32.0-32.9, adult February- 4 Melissa Srivastava . [address], [place], [place], [id number] , [place]. tel: [phone] Referring Provider: Abhishek Liu, [address] [place], [address]. tel:[phone] Family History Family Member Type Diagnosis Age At Onset No Information Payers Payer name Insurance type Covered alliance party ID Raad hopkins(glenn) Barry PPO OT [id number] Social History Type Description Quantity Date Captured Comments Alcohol Use Details beer Caffeine Use Details Unknown Tobacco Use Status Current non-smoker Smoking Status Never smoker Non-Smoking Tobacco Use Details : No Details Available : No Details Available Sex Male Chief Complaint And Reason For Visit No Information Reason For Referral Reason For Referral No Information Plan Of Treatment Date Type Action Status Goal Lifestyle education regardin g diet completed Referral Ordered: RADEX PATRICK COMPL MINIMUM 2 VIEWS RT ordered Referral Ordered: RADEX WRST COMPL MINIMUM 3 VIEWS LT wrist ordered History Of Present Illness Encounter Date Complaint History Of Prese nt Illness No Information Functional Status Date Functional Assessmen t No Information Instructions Date Instruction Additional Infor mation Home exercise program Related to Pain in right shoulder ADL training Related to Pain in right shoulder Job/work modification Related to Pain in right shoulder Lifestyle education regarding di et Related to Body mass index [BMI] 32.0-32.9, adult Assessments Type Assessment Date assessment Primary osteoarthritis, right sh oulder assessment Status post total replacement of right shoulder Patient Care Teams Name Effective Dates (start - stop) Status Members No Information
[2025-09-29] VITALS (19 sets, daily range): BP systolic 142–221; BP diastolic 64–142; PULSE 43–101; RESP 17–24; TEMP 36.8–37.3; O2SAT 95–97
--- NOTE | ~2025-09-29 | XR_ITS ---
EXAMINATION: XR chest 1V portable DATE: 09/29/2025 18:20 INDICATION: Shortness of breath. Chest pain. TECHNIQUE: A single frontal view of the chest was obtained. COMPARISON: None. FINDINGS: Moderate cardiomegaly. Lungs do not show acute findings in the portable chest x-ray. IMPRESSION: 1. No acute pulmonary findings. Cardiomegaly. Reviewed, dictated and finalized at location [facility]
--- NOTE | 2025-09-29 17:50 | ECG_ITS ---
Test Date: 2025-09-29 18:00:49 Measurements Intervals [place] Rate: 69 P: 48 GA: 182 QRS: -11 QRSD: 96 T: 103 QT: 406 QTc: 437 Interpretive Statements SINUS RHYTHM WITH OCCASIONAL VENTRICULAR PREMATURE COMPLEXES LEFT VENTRICULAR HYPERTROPHY T WAVE ABNORMALITY IN ANTERIOR LEADS- CONSIDER ISCHEMIA BASELINE ARTIFACT- II, III, V4-V6 ABNORMAL ECG No previous ECG available for comparison Electronically Signed On 09-29-2025 21:11:42 ELECTRIC RAZOR ASSEMBLER by Richard Harrison D.O.
--- OUTSIDE RECORDS SUMMARY | 2025-09-29 17:50 | XMS_ITS | Encounter Summary ---
Author Organization [facility] Address [address] [place] [address] Care Team Providers Care High School Music Instructor Name Role Phone Abhishek Liu MD Primary Care Provider [phone] Encounter Details Date Type Department Care Team (Late st Contact Info) Description 04/25/1999 Outpatient Historical [facility] José Lind MD Social History Tobacco Use Types Packs/Day Years Used Date Smoking Tobacco: Never Assessed Sex and Gender Information Value Date Recorded Sex Assigned at Not on file Legal Sex Male 3:21 AM OFFSET LITHOGRAPHIC PRESS OPERATOR Gender Identity Not on file Sexual Orientation Not on file documented as of this encounter Plan of Treatment Not on file documented as of this encounter Visit Diagnoses Not on filedocumented in this encounter Additional Health Concerns Infection Onset Date Last Indicated Resolved Time R/O COVID-19 11/03/2024 11/03/2024 11/03/2024 1:40 AM OFFSET LITHOGRAPHIC PRESS OPERATOR Influenza 11/03/2024 11/03/2024 11/11/2024 1:1 7 AM OFFSET LITHOGRAPHIC PRESS OPERATOR R/O Respiratory 11/04/2024 11/03/2024 11/04/2024 1 2:57 PM OFFSET LITHOGRAPHIC PRESS OPERATOR documented as of this encounter Care Teams High School Music Instructor Relationship Specialty Start Date End Date Abhishek Liu MD [address] [place] [id number] PCP - General Family Practice 09/21/18 documented as of this encounter
--- OUTSIDE RECORDS SUMMARY | 2025-09-29 17:50 | XMS_ITS | Clinical Summary ---
Author Organization [facility] Address [address] [place] [address] Phone Care Team Providers Care Corn Press Operator Name Role Phone Abhishek Liu MD Primary Care Provider [phone] Allergies No known active allergies Medications aspirin [...] 10 mg by mouth daily. 0 Active Telmisartan-[place] chlorothiazid 80-12.5 mg Tablet Take 1 Tablet by mouth daily. 0 Active albuterol (PROVENTIL,VENTOL IN) 2.5 mg /3 mL (0.083 %) Solution for NebulizationIndic ations:Moderate persistent asthma without complication Take 3 mL (2.5 mg) by inhalation every 6 hours as needed for Shortness of Breath. 120 mL 5 0 Active naloxone (NARCAN) 4 mg/spray [place], Non-Aerosol EMERGENCY USE ONLY: Administer 1 spray (4 mg) in one nostril one time. May repeat in alternating nostrils every 2-3 min until responsive or EMS arrives. 2 Each 3 5 Active allopurinoL (ZYLOPRIM) 100 mg tablet Take 100 mg by mouth daily. Active fluticasone-umecl idinium-vilantero l (Trelegy Ellipta) 200-62.5-25 mcg Disk with DeviceIndications :Asthma-COPD overlap syndrome (CMS/HCC) Take 1 Puff by inhalation daily. 90 Each 3 5 Active montelukast (SINGULAIR) 10 mg tabletIndications :Moderate persistent asthma without complication Take 1 Tablet (10 mg) by mouth daily at bedtime. 90 Tablet 3 5 Active albuterol sulfate HFA 90 mcg/actuation aerosol inhalerIndication s:Asthma-COPD overlap syndrome (CMS/HCC) Take 2 Puffs by inhalation every 6 hours as needed for Shortness of Breath. 6.7 Gram 6 5 Active Active Problems Patient Care Coordination [...] Encounters Date Type Department Care Team Description 09/25/2025 External Device Data STL ABSTRACTION Provider, Abstract 09/04/2025 External Device Data STL ABSTRACTION Provider, Abstract 07/17/2025 External Device Data STL ABSTRACTION Provider, Abstract [...] declined 04/30/2019 How often do you attend confucianist or gnosticism serv ices? Patient declined 04/30/2019 Do you belong to any clubs o r organizations such as confucianist groups, unions, fraternal or athletic groups, or [...] No 11/03/2024 Food Insecurity Answer Date Recorded Patient needs follow up regardin 02/01/2025 Transportation Needs Answer Date Record ed Patient needs follow up regardin 02/01/2025 Housing Stability Answer Date Recorded Social/Environmental Concerns No concerns Utility Needs Answer Date Recorded Patient needs follow up regardin 02/01/2025 Sex and Gender Information Value Date Recorded Sex Assigned at Not on file Legal Sex Male 3:21 AM MODULAR SET CREW MEMBER Gender Identity Not on file Sexual Orientation Not on file 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 Not on file [...] 03/28/2025 2:53 PM CDT Plan of Treatment Health Maintenance Due Date Last Done Comments Pre-Diabetes and Diabetes Screening 1960 DTAP/TDAP/TD VACCINES (1 - Tdap) 01/04/1979 PNEUMOCOCCAL VACCINE 50+ YEARS (1 of 2 - PCV) 01/04/19 79 COLORECTAL SCREENING 01/04/2005 Colorectal Cancer Screening 01/04/2005 FIT-DNA Q 3 years 01/04/2005 FIT/FOBT Q 1 year 01/04/2005 Flex Sig/CT Colonography Q 5 years 01/04/2005 RSV VACCINE (60+ or ) (1 - Risk 50-74 years 1-dose series) 01/04/2010 ZOSTER VACCINE (1 of 2) 01/04/2010 INFLUENZA VACCINE (#1) 2025 07/14/2019 Medical Devices Implanted Type Area Station Gateman Device Identifier Shelf Expiration Date Model / Serial / Lot Hip Hip Insurance CIGNA PPO RX [facility] Caremark RX [employer] Care[employer] RX DANIELLE PLANS (INTERNAL) [facility] Internal Plans Advance Directives For more information, please contact: [phone] * Full Code (Latest Code Status on [...] 6:53 AM 05/01/2019 1:53 PM Care Teams Corn Press Operator Relationship Specialty Start Date End Date Abhishek Liu MD [address] [place] [address] PCP - General Family Practice 09/21/18
--- NOTE | 2025-09-29 17:58 | ED.CHESTPAIN ---
HPI - Chest Pain General Chief Complaint: Chest Pain Stated Complaint: chest pain/wheezing/sob Source: patient Mode of arrival: ambulatory Limitations: no limitations History of Present Illness HPI narrative: This is a 65-year-old male, with history of asthma and hyperlipidemia who presents to the emergency department complaining of chest pain and shortness of breath for the past 3 days. The patient describes the pain as tightness, throughout the chest, radiating to the right arm in aggravated by physical exertion. This is accompanied by occasional nausea sweats. He denies any recent travel or sick contacts. He states he has tried his albuterol inhalers without improvement. He has no other complaints at this time. Related Data Home Medications ?Medication ?Instructions ?Recorded ?Confirmed ?Last Taken ?Type albuterol sulfate 90 mcg/actuation 2 puff inhalation Q6H PRN 08/10/20 05/01/25 Unknown History aerosol inhaler Shortness Of Breath Or Wheezing aspirin 81 mg tablet 81 mg PO DAILY 08/10/20 05/01/25 Unknown History telmisartan 80 1 tablet PO DAILY 08/10/20 05/01/25 Unknown History mg-hydrochlorothiazide 12.5 mg tablet montelukast 10 mg tablet 10 mg PO DAILY 12/03/20 05/01/25 Unknown History fluticasone fur. 200 mcg-umeclid 1 inh inhalation DAILY 05/01/25 05/01/25 Unknown History 62.5 mcg-vilant 25 mcg inhalat.powder (Trelegy Ellipta) Allergies Allergy/AdvReac Type Severity Reaction Status Date / Time No Known Allergies Allergy Unknown Verified 10/24/24 13:34 Review of Systems Review of Systems: All systems reviewed & are unremarkable except as noted in HPI and below (HPI) PMFSH Past Medical History Medical History Asthma HTN (hypertension) Surgical History Surgical History Status post bilateral total hip replacement Social History Social History Smoking status: Never smoker Second hand tobacco smoke exposure: No Alcohol intake: never Substance use: never Spiritual care concerns: No Exam Narrative: GENERAL: Well-developed, well-nourished, appears uncomfortable HEAD: Normocephalic, atraumatic. EYES: PERRLA and EOMI. NECK: Supple. No JVD CHEST: Clear to auscultation. Diminished breath sounds bilaterally. Faint expiratory wheeze. No respiratory distress. No rales or rhonchi HEART: Regular rate and rhythm. No murmur heard. Normal peripheral pulses. ABDOMEN: Soft, nontender, nondistended, normal active bowel sounds. EXTREMITIES: Normal range of motion. No edema. SKIN: Warm, dry, no rash. NEURO: Alert and oriented x3. No focal deficit. Moving all 4 limbs spontaneously PSYCH: Normal mood and affect. Course Course Emergency Course: 18:59 - CBC unremarkable. INR 0.9. Troponin elevated at 0.243. The patient had elevations to 0.053 in 2018. BNP elevated to 721. EKG not concerning for acute ischemia. Chemistries otherwise within normal limits. Chest x-ray not concerning for acute cardiopulmonary process. The patient states he feels significantly improved after a DuoNeb and 4 mg IV morphine. The patient is followed by [facility] zipper setter chainstitch, Dr. Harrison. He has had an echo in November 2024 with EF of 60-65%. He had a Lexiscan done in November 2024 that was negative. COVID, influenza and RSV pending. The patient's findings are concerning for NSTEMI. Cardiology is not available at this facility. Will transfer for cardiology evaluation and possible stent placement. The patient voices preference for [facility], [facility] or [facility]. 19:20 - Nursing staff attempted to contact [facility] to discuss transfer. Hospitalist currently involved in a code. 20:46 - Nursing staff contacted [facility] to discuss transfer; the patient is on a waiting list. I discussed the patient with [facility] seo coordinator JANIE Goode 21:16 - The patient was accepted by [facility] hospitalist, Dr. Dobbs however beds are not currently available. 21:24 - I discussed the patient with [facility] hospitalist, Dr. Juarez who accepts transfer to the cardiac floor. Vital Signs Vital signs: Vital Signs Temperature 99.1 F 09/29/25 17:48 Pulse Rate 82 09/29/25 17:48 Respiratory Rate 24 H 09/29/25 17:48 Blood Pressure 181/99 H 09/29/25 17:48 Pulse Oximetry 96 12/27/25 17:48 Oxygen Delivery Room Air 09/29/25 17:48 Temperature 98.2 F 09/29/25 19:32 Pulse Rate 91 09/29/25 19:00 Respiratory Rate 20 09/29/25 19:00 Blood Pressure 169/84 H 09/29/25 19:00 Pulse Oximetry 95 09/29/25 19:00 Oxygen Delivery Room Air 09/29/25 19:00 Oxygen Flow Rate 10 09/29/25 18:35 MDM MDM Narrative Medical decision making narrative: Plan: Labs, EKG, troponin, nebs, steroids, imaging, pain control, antihypertensives, reassess Differential Diagnosis Differential Diagnosis: ACS, asthma exacerbation, CHF, COVID, pneumonia, influenza, metabolic abnormality, other Lab Data [facility] Lab Attestation statement: I personally reviewed the patient's lab results. 09/29/25 18:20 09/29/25 18:20 Labs: Lab Results 09/29/25 09/29/25 09/29/25 Range/Units 17:57 18:20 21:04 WBC 8.3 (4.8-10.8) K/mm3 RBC 5.16 (4.70-6.10) M/mm3 Hgb 14.2 (12.4-15.3) g/dL Hct 43.3 (37.0-46.0) % MCV 83.9 (78.0-102.0) fL MCH 27.5 (27.0-31.0) pg MCHC 32.8 (32-36) g/dL RDW 13.1 (11.6-14.4) % Plt Count 204 (150-420) K/mm3 MPV 11.4 H (8.7-11.0) fl Immature Gran % (Auto) 0.4 H (0.0-0.0) % Neut % (Auto) 52.2 (50.0-70.0) % Lymph % (Auto) 33.8 (18.0-42.0) % [place] % (Auto) 8.4 (2.0-11.0) % Eos % (Auto) 4.6 (1.0-6.0) % Baso % (Auto) 0.6 (0.0-1.0) % Lymph # (Auto) 2.80 (1.10-4.50) K/mm3 [place] # (Auto) 0.70 (0.10-0.90) K/mm3 Eos # (Auto) 0.38 (0.02-0.50) K/mm3 Baso # (Auto) 0.05 (0.00-0.10) K/mm3 Abs Immat Gran (auto) 0.03 H (0.00-0.00) K/mm3 Absolute Neuts (auto) 4.33 (1.70-7.20) K/mm3 Absolute Nucleated RBC 0.00 (0.00-0.00) K/mm3 Nucleated RBC % 0.0 (0-0.0) % PT 10.1 (9.50-12.1) Seconds INR 0.9 APTT 25.3 (23.9-30.70) Sec Sodium 141 (137-145) mmol/L Potassium 3.9 (3.4-5.0) mmol/L Chloride 109 H (98-107) mmol/L Carbon Dioxide 23 (22-30) mmol/L Anion Gap 9 (4-12) mmol/L BUN 20 (9-20) mg/dL Creatinine 1.01 (0.7-1.3) mg/dL Estim Creat Clear Calc Not Reportable Estimated GFR > 60 (59 - ) Glucose 175 H (65-110) mg/dL Calculated Osmolality 298 H (285-295) mOsm/kg Calcium 8.6 (8.4-10.2) mg/dL Total Bilirubin 0.2 (0.2-1.3) mg/dL AST 43 (17-59) U/L ALT 39 (6-50) U/L Alkaline Phosphatase 107 (38-126) U/L Troponin I 0.243 H* Pending (0.000-0.034) ng/mL NT-Pro-B Natriuret Pep 721 H (19.9-100) pg/mL Total Protein 7.2 (6.3-8.2) g/dL Albumin 4.1 (3.5-5.1) g/dL Lipase 43 (23-300) U/L Influenza A (RT-PCR) Negative (Negative) Influenza B (RT-PCR) Negative (Negative) RSV (RT-PCR) Negative (Negative) SARS-CoV-2 RNA (RT-PCR) Negative (Negative) Imaging Data Radiologist's impression: ITS Impressions Chest X-Ray 09/29/25 18:21 IMPRESSION: 1. No acute pulmonary findings. Cardiomegaly. ECG Data EKG #1: Attestation: I personally reviewed and interpreted this ECG as follows: ECG completion date: 09/29/25 ECG completion time: 18:00 Prior ECG tracings: available for review Interpretation: Sinus rhythm with occasional PVCs, rate 69, normal axis, no ST segment elevation or T-wave inversions concerning for ischemia, normal intervals with QTC of 425. No significant change compared to EKG done in October 2024. Discharge Plan Discharge Clinical Impression: Non-ST elevation AL (NSTEMI) Asthma exacerbation Qualifiers: Asthma severity: moderate Asthma persistence: persistent Qualified Code(s): J45.41 - Moderate persistent asthma with (acute) exacerbation Chest pain Qualifiers: Chest pain type: unspecified Qualified Code(s): R07.9 - Chest pain, unspecified Patient Disposition: Acute Care Hospital Condition: Serious Patient Language: Chinese Prescriptions: No Action telmisartan-hydrochlorothiazid 80-12.5 mg tablet 1 tablet PO DAILY aspirin 81 mg Tablet 81 mg PO DAILY albuterol sulfate 90 mcg/actuation HFA aerosol inhaler 2 puff INHALATION Q6H PRN (Reason: Shortness Of Breath Or Wheezing) montelukast 10 mg tablet 10 mg PO DAILY Trelegy Ellipta 200-62.5-25 mcg blister with device 1 inh inhalation DAILY methylprednisolone [Medrol (Yovanny)] 4 mg tablets,dose pack 4 mg PO DAILY Qty: 21 0RF cyclobenzaprine 10 mg tablet 10 mg PO BID PRN (Reason: muscle spasm) Qty: 14 0RF atorvastatin [Lipitor] 20 mg tablet 20 mg PO DAILY Qty: 30 5RF metoprolol succinate 25 mg tablet extended release 24 hr See Rx Instructions .ROUTE .COMPLEX Qty: 90 2RF Dose Instruction: TAKE 1 TABLET BY MOUTH DAILY Rx Instructions: TAKE 1 TABLET BY MOUTH DAILY Follow-up/Referrals: Abhishek Liu MD [Primary Care Provider, Internal Medicine] Time of Disposition: 18:59
[2025-09-29] MEDS: ASPIRIN 81 MG CHEWABLE TABLET 324 MG PO (18:15)
[2025-09-29] MEDS: IPRATROPIUM 0.5 MG/ALBUTEROL SULFATE 2.5 MG (BASE) AMPUL.NEB 3 ML 6 ML INHALATION (18:17)
[2025-09-29 18:25] LABS: Hematocrit 43.3 % (37.0-46.0); Hemoglobin 14.2 g/dL (12.4-15.3); Immature Granulocyte Percent A 0.4 % (0.0-0.0); Lymphocytes Absolute Auto 2.80 K/mm3 (1.10-4.50); Mean Corpuscular HGB Conc 32.8 g/dL (32-36); Mean Corpuscular Hemoglobin 27.5 pg (27.0-31.0); Mean Corpuscular Volume 83.9 fL (78.0-102.0); Nucleated Red Blood Cells Absolute Auto 0.00 K/mm3 (0.00-0.00); Nucleated Red Blood Cells Perc 0.0 % (0-0.0); Platelet Count Result 204 K/mm3 (150-420); Red Blood Count 5.16 M/mm3 (4.70-6.10); White Blood Count 8.3 K/mm3 (4.8-10.8)
[2025-09-29] MEDS: MORPHINE SULFATE (*CRX) 4 MG/ML INJ 2 MG IV PUSH (18:32)
[2025-09-29 18:35] LABS: Alanine Aminotransferase 39 U/L (6-50); Albumin Level 4.1 g/dL (3.5-5.1); Alkaline Phosphatase 107 U/L (38-126); Anion Gap 9 mmol/L (4-12); Aspartate Amino Transferase 43 U/L (17-59); Bilirubin,Total 0.2 mg/dL (0.2-1.3); Blood Urea Nitrogen 20 mg/dL (9-20); Calcium 8.6 mg/dL (8.4-10.2); Carbon Dioxide 23 mmol/L (22-30); Chloride 109 mmol/L (98-107); Estimated Glomerular Filt Rate > 60; Glucose 175 mg/dL (65-110); Lipase 43 U/L (23-300); Osmolality Calculated 298 mOsm/kg (285-295); Potassium 3.9 mmol/L (3.4-5.0); Sodium 141 mmol/L (137-145); Total Protein 7.2 g/dL (6.3-8.2)
[2025-09-29 18:37] LABS: INR 0.9; Partial Thromboplastin Time 25.3 Sec (23.9-30.70); Prothrombin Time 10.1 Seconds (9.50-12.1)
[2025-09-29 18:49] LABS: Troponin I 0.243 ng/mL (0.000-0.034)
--- OUTSIDE RECORDS SUMMARY | 2025-09-29 18:49 | XMS_ITS | Encounter Summary ---
Author Organization [facility] Address [address] [place] [address] Care Team Providers Care Lead Based Paint Technician Name Role Phone Abhishek Liu MD Primary Care Provider [phone] Encounter Details Date Type Department Care Team (Late st Contact Info) Description 04/25/1999 Outpatient Historical [facility] José Lind MD Social History Tobacco Use Types Packs/Day Years Used Date Smoking Tobacco: Never Assessed Sex and Gender Information Value Date Recorded Sex Assigned at Not on file Legal Sex Male 3:21 AM GUITAR MAKER HAND Gender Identity Not on file Sexual Orientation Not on file documented as of this encounter Plan of Treatment Not on file documented as of this encounter Visit Diagnoses Not on filedocumented in this encounter Additional Health Concerns Infection Onset Date Last Indicated Resolved Time R/O COVID-19 11/03/2024 11/03/2024 11/03/2024 1:40 AM GUITAR MAKER HAND Influenza 11/03/2024 11/03/2024 11/11/2024 1:1 7 AM GUITAR MAKER HAND R/O Respiratory 11/04/2024 11/03/2024 11/04/2024 1 2:57 PM GUITAR MAKER HAND documented as of this encounter Care Teams Lead Based Paint Technician Relationship Specialty Start Date End Date Abhishek Liu MD [address] [place] [id number] PCP - General Family Practice 09/21/18 documented as of this encounter
--- OUTSIDE RECORDS SUMMARY | 2025-09-29 18:49 | XMS_ITS | Clinical Summary ---
Author Organization [facility] Address [address] [place] [address] Phone Care Team Providers Care Cnc Grinder Name Role Phone Abhishek Liu MD Primary Care Provider [phone] Allergies No known active allergies Medications aspirin [...] 10 mg by mouth daily. 0 Active Telmisartan-[place] chlorothiazid 80-12.5 mg Tablet Take 1 Tablet by mouth daily. 0 Active albuterol (PROVENTIL,VENTOL IN) 2.5 mg /3 mL (0.083 %) Solution for NebulizationIndic ations:Moderate persistent asthma without complication Take 3 mL (2.5 mg) by inhalation every 6 hours as needed for Shortness of Breath. 120 mL 5 0 Active naloxone (NARCAN) 4 mg/spray [place], Non-Aerosol EMERGENCY USE ONLY: Administer 1 spray [...] declined 04/30/2019 How often do you attend mosque or tenriism serv ices? 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
[2025-09-29 18:50] LABS: NT Pro B Type Natriuretic Pept 721 pg/mL (19.9-100)
[2025-09-29] MEDS: ACETAMINOPHEN 325 MG TABLET 975 MG PO (19:02)
[2025-09-29 19:59] LABS: Influenza A QL RT-PCR Negative (Negative); Influenza B QL RT-PCR Negative (Negative); RSV RNA, RT-PCR Negative (Negative); SARS-CoV-2 RNA PCR Negative (Negative)
[2025-09-29] MEDS: HEPARIN SOD/D5W 100 UNITS/ML 25,000 UNITS/250 ML BAG 10 UNITS IV CONT (20:21)
[2025-09-29 21:38] LABS: Troponin I 0.402 ng/mL (0.000-0.034)
--- NOTE | 2025-09-29 23:18 | PC.NURSE ---
ERP aware of vital signs. No new orders.
== END 2025-09-29 23:23 | disposition short-term general hospital (02) ==
PROVIDERS: Emergency Provider Preventive Medicine Aerospace Medicine; PCP Family Medicine
DX: I21.4 Non-ST elevation (NSTEMI) myocardial infarction (principal); J45.41 Moderate persistent asthma with (acute) exacerbation; E78.5 Hyperlipidemia, unspecified; Z20.822 Contact with and (suspected) exposure to COVID-19
CPT/HCPCS: 36415; 71045; 80053; 83690; 83880; 84484; 85025; 85610; 85730; 87637; 93005; 96374; 96375; 96376; 99285; A9270; J1644; J2270; J2919